=== PATIENT | male | born 1945 | race Two or more races ===

== ENCOUNTER 2021-03-01 18:35 | Emergency (ER) | payer SELFPAY ==
[~2021-03-01] VITALS: Ht 165.1 cm; Wt 88.5 kg
[2021-03-01 18:58] LABS: BASOPHILS # (AUTO) 0.1 K/uL (0.0-0.2); BASOPHILS % (AUTO) 0.7 % (0.0-2.0); EOSINOPHILS % (AUTO) 3.4 % (0.0-6.0); HEMATOCRIT 26 % (39-51); HEMOGLOBIN 7.8 g/dL (13.5-17.5); LYMPHOCYTES # (AUTO) 1.6 K/uL (0.8-4.8); LYMPHOCYTES % (AUTO) 21.9 % (20.0-44.0); MEAN CORPUSCULAR HGB CONC 30 g/dl (31.0-36.0); MEAN CORPUSCULAR VOLUME 63 fL (80-96); MONOCYTES # (AUTO) 0.6 K/uL (0.1-1.30); MONOCYTES % (AUTO) 8.8 % (2.0-12.0); NEUTROPHILS # (AUTO) 4.7 K/uL (1.8-8.9); NEUTROPHILS % (AUTO) 65.2 % (43.0-81.0); PLATELET COUNT (AUTO) 222 K/uL (150-450); RED BLOOD CELL COUNT(AUTO) 4.09 MIL/uL (4.5-6.0); WHITE BLOOD COUNT (AUTO) 7.2 K/uL (4.3-11.0)
[2021-03-01] MEDS ORDERED: NITROGLYCERIN PACKET 1 GM PACKET TD ONE (19:00)
[2021-03-01 19:06] LABS: CALCIUM, SERUM 8.5 mg/dL (8.5-10.1); CARBON DIOXIDE 26 mmol/L (21-32); CHLORIDE 105 mmol/L (98-107); CREATININE 0.9 mg/dL (0.6-1.3); GLUCOSE 232 mg/dL (74-106); POTASSIUM 4.3 mmol/L (3.5-5.1); SODIUM SERUM 141 mmol/L (136-145); UREA NITROGEN, BLOOD 19 mg/dL (7-18)
--- NOTE | 2021-03-01 19:11 | NUR ---
76 years old male presents to er by ambulance with cp past 2 days worse today denies nausea,vomiting, constipation report bloating, placed on computer education teacher continuous pulse ox EKG done given to Dr Romero no acute distress.
[2021-03-01] MEDS ORDERED: NITROGLYCERIN PACKET 1 GM PACKET ONE (19:15)
--- NOTE | 2021-03-01 19:23 | NUR ---
report endorsed to 7pm RN all questions answered.
--- NOTE | 2021-03-01 19:54 | NUR ---
SPOKE TO THE PT AND THE SON ON THE PHONE MARK ANTHONY INTERPRETOR REGARDING ADMISSION. ALSO SPOKE TO THE SON OVER THE PHONE. PT AND SON BOTH REFUSED TO STAY AT THE HOSPITAL AND GET ADMITTED. RISK VS BENEFITS WERE EXPLAINED TO THE PT AND SON IN [facility].
[2021-03-01 20:09] LABS: LYMPHOCYTES % (MANUAL) 20 % (16-48); NEUTROPHILS % (MANUAL) 68 (42-76)
[2021-03-01 20:10] LABS: EOSINOPHILS % (MANUAL) 4 % (0-4); MONOCYTES % (MANUAL) 8 % (0-11.0)
--- NOTE | 2021-03-01 20:54 | NUR ---
Patient does not wish to proceed with medical care recommended by Dr. Romero. Patient and the son given information related to possible complications, up to and including , which could occur as a result of leaving the hospital at this time. Patient verbalizes understanding of risks involved due to leaving against medical advice. Patient and the son signed AMA form.IV removed. Catheter intact and site benign. Pressure and 4x4 applied to site. No bleeding noted.
[2021-03-01 20:57] VITALS: BP 131/67
== END 2021-03-01 20:57 | disposition left against medical advice (07) ==
LOC: ER 18:41
DX: I24.9 Acute ischemic heart disease, unspecified (principal); I11.0 Hypertensive heart disease with heart failure; I50.9 Heart failure, unspecified; D64.9 Anemia, unspecified; E11.9 Type 2 diabetes mellitus without complications; Z88.8 Allergy status to other drugs, medicaments and biological substances; Z95.818 Presence of other cardiac implants and grafts
CPT/HCPCS: 36415; 71045-TC; 80048-TC; 83880; 84484-TC; 85025-TC

== ENCOUNTER 2022-06-27 17:47 | Inpatient (IN) | payer MEDICARE, OTHER ==
[~2022-06-27] VITALS: Ht 167.6 cm; Wt 87.5 kg
--- NOTE | 2022-06-27 17:53 | NUR ---
KAYE 89 FROM HOME FOR SOB AND O2 DESATURATION, ON CPAP AND ALBUTEROL TREATMENT. TO ER BED 5.
[2022-06-27] MEDS ORDERED: [UNRECOGNIZED DRUG - REMARK] (18:15)
[2022-06-27] MEDS ORDERED: DILTIAZEM HCL 25 MG IV IVP ONE (18:30)
[2022-06-27] MEDS ORDERED: ASPIRIN 81 MG TAB.CHEW PO ONE (18:30)
[2022-06-27] MEDS ORDERED: DILTIAZEM HCL IV 125 MG in IV D5W 100 ML IV ONE (18:30)
--- NOTE | 2022-06-27 18:40 | NUR ---
Pt placed on BIPAP on noted settings at arrival per MD Mckeon. Pt awake and responsive. Pt tolerating current settings. Pt arrived on continuous ALB tx. ABG scheduled 1 hr post BIPAP initial (@191).
[2022-06-27] MEDS ORDERED: ASPIRIN 81 MG TAB.CHEW ONE (18:43)
[2022-06-27] MEDS ORDERED: DILTIAZEM HCL 25 MG IV ONE (18:44)
--- NOTE | 2022-06-27 18:58 | NUR ---
BIPAP SETTINGS: IPAP-20, RATE-18, RISE-3, EPAP-8, O2-100
[2022-06-27] MEDS ORDERED: FUROSEMIDE 40 MG/4 ML VIAL IV ONE (19:00)
[2022-06-27 19:01] LABS: CALCIUM, SERUM 8.8 mg/dL (8.5-10.1); CARBON DIOXIDE 25 mmol/L (21-32); CHLORIDE 96 mmol/L (98-107); GLUCOSE 296 mg/dL (74-106); POTASSIUM 4.3 mmol/L (3.5-5.1); SODIUM SERUM 128 mmol/L (136-145); UREA NITROGEN, BLOOD 15 mg/dL (7-18)
[2022-06-27] MEDS ORDERED: FUROSEMIDE 40 MG/4 ML VIAL ONE (19:02)
--- NOTE | 2022-06-27 19:09 | NUR ---
PANEL ON-CALL PAGED
[2022-06-27 19:14] LABS: ALANINE AMINOTRANSFERASE 24 U/L (12-78); ALBUMIN 3.4 g/dL (3.4-5.0); ALKALINE PHOSPHATASE 40 U/L (46-116); ASPARTATE AMINOTRANSFERASE 38 U/L (15-37); BILIRUBIN,DIRECT 0.2 mg/dL (0.0-0.2); BILIRUBIN,TOTAL 0.6 mg/dL (0.2-1.0); TOTAL PROTEIN, SERUM 7.6 g/dL (6.4-8.2)
--- NOTE | 2022-06-27 19:16 | NUR ---
HR-107, BP-125/58; CARDIZEM DRIP INITIATED AT 5MG/HR.
--- NOTE | 2022-06-27 19:16 | NUR ---
RT AT BEDSIDE FOR ABG
[2022-06-27 19:30] LABS: ABG BASE EXCESS 0.3 mmol/L; ABG OXYGEN SATURATION 98.7 % (92.0-98.5); ABG PCO2 32.6 mmHg (35.0-45.0); ABG PH 7.471 (7.350-7.450); ABG PO2 425.3 mmHg (75.0-100.0); AaDO2 255.1 mmHg; COHb 0.3 % (0.5-1.5); MetHb 0.1 % (0.0-1.5); O2Hb 98.3 % (94.0-97.0); SITE, ABG Right Radial
--- NOTE | 2022-06-27 19:30 | NUR ---
RT FIO2 titrate to 30%
[2022-06-27 19:51] LABS: BASOPHILS % (AUTO) 0.2 % (0.0-2.0); EOSINOPHILS % (AUTO) 0.1 % (0.0-6.0); HEMATOCRIT 37 % (39-51); HEMOGLOBIN 12.1 g/dL (13.5-17.5); LYMPHOCYTES # (AUTO) 0.6 K/uL (0.8-4.8); LYMPHOCYTES % (AUTO) 6.8 % (20.0-44.0); MEAN CORPUSCULAR HGB CONC 33 g/dl (31.0-36.0); MEAN CORPUSCULAR VOLUME 79 fL (80-96); MONOCYTES # (AUTO) 0.6 K/uL (0.1-1.30); MONOCYTES % (AUTO) 7.6 % (2.0-12.0); NEUTROPHILS % (AUTO) 85.3 % (43.0-81.0); PLATELET COUNT (AUTO) 184 K/uL (150-450); WHITE BLOOD COUNT (AUTO) 8.2 K/uL (4.3-11.0)
--- NOTE | 2022-06-27 20:53 | NUR ---
SPOKE TO SON CHICHO. THEY WANT TO BRING THEIR DAD HOME AMA. EXPLAINED TO HIM THAT HIS DAD IS POSITIVE OF COVID AND HE IS ADMITTED FOR AFIB AND HAVING A CARDIZEM DRIP. SON IS WORRIED THAT WE ARE GIVING THEM A FALSE REPORT REPORT SINCE THIS HAPPEN TO HIS DAD LAST YEAR TOO BUT DAD WAS OK WHEN THEY BROUGHT HIM HOME. HE WANTS TO TALK TO DR FISHER ABOUT PLAN OF AMA. DR FISHER MADE AWARE AND EXPLAINED TO HIM THE RISK OF BRINGING THEIR DAD HOME. ESPECIALLY THAT PT'S CARDIAC ENZYMES ARE VERY HIGH. SON WILL TALK TO SISTER ABOUT THIS.
[2022-06-27] MEDS ORDERED: ALBUTEROL SULFATE 8 GM HFA.AER.AD IH PRN (21:00)
[2022-06-27] MEDS: ASPIRIN 81 MG TAB.CHEW PO SCH (21:00)
[2022-06-27] MEDS ORDERED: ONDANSETRON HCL/PF 4 MG/2 ML VIAL IVP PRN (21:00)
[2022-06-27] MEDS ORDERED: MAG HYDROX/AL HYDROX/SIMETH 30 ML UDC PO PRN (21:00)
[2022-06-27] MEDS ORDERED: DEXTROSE 50%-WATER 50 ML DISP.SYRIN IV PRN (21:00)
[2022-06-27] MEDS ORDERED: MORPHINE SULFATE INJ 2 MG/ML DISP.SYRIN IV PRN (21:00)
[2022-06-27] MEDS ORDERED: Z GUARD REMEDY 4 OZ OINT TP PRN (21:00)
[2022-06-27] MEDS ORDERED: ACETAMINOPHEN 325 MG TABLET PO PRN (21:00)
[2022-06-27] MEDS ORDERED: FUROSEMIDE 40 MG/4 ML VIAL IV SCH (21:00)
[2022-06-27] MEDS ORDERED: ZOLPIDEM TARTRATE 5 MG TABLET PO PRN (21:00)
[2022-06-27] MEDS ORDERED: MAGNESIUM HYDROXIDE 30 ML UDC PO PRN (21:00)
--- NOTE | 2022-06-27 21:07 | NUR ---
Robi crews in [facility] - 06/27/22 at 2108 by YARELI TRANSFERRED PATIENT TO [facility] VIA ACLS
--- NOTE | 2022-06-27 22:45 | NUR ---
Received patient from ED via ACLS protocol/fatmata transferred to bed and made comfortable. Dx: Respiratory Failure,Afib with RVR,Heart failure,Covid +.Patient AA/OX3 on O2 8L simple mask. No acute distress noted.Afib per monitor 90's with Cardizem gtt infusing at 5 mg/hr.Patient denies chest pain, sob or any discomfort.Moves all extremities.FC to gravity with clear yellow urine.Oriented to unit and plan of care explained to patient.Verbalized understanding.Safety precaution initiated.Call light at bedside.
--- NOTE | 2022-06-27 22:56 | NUR ---
TRANSFERRED PT TO ICU PER ACLS. PATIENT TOLERATING THE TRANSPORT
--- NOTE | 2022-06-27 22:57 | NUR ---
URINE SPECIMEN SENT TO LAB
--- NOTE | 2022-06-27 22:58 | NUR ---
IFC F16 INSERTED. IV CANNULA G20 INSERTED ON RIGHT FA.
[2022-06-27 23:00] VITALS: BP 143/72
[2022-06-27] MEDS ORDERED: ENOXAPARIN SODIUM 100 MG/ML DISP.SYRIN SQ SCH (23:00)
[2022-06-27 23:15] VITALS: BP 128/66
[2022-06-27] MEDS ORDERED: CEFTRIAXONE 1 G VIAL ONE (23:22)
[2022-06-27] MEDS: DEXAMETHASONE SOD PHOSPHATE 10 MG/ML VIAL IV SCH (23:27)
[2022-06-27] MEDS: CEFTRIAXONE 1 G in IV D5W 50 ML IV SCH (23:27)
[2022-06-27 23:30] VITALS: BP 124/69
[2022-06-27] MEDS ORDERED: IV NS 0.9% 250 ML IV PRN (23:30)
[2022-06-27] MEDS ORDERED: DILTIAZEM HCL IV 125 MG in IV NS 0.9% 100 ML IV PRN (23:30)
[2022-06-27] MEDS ORDERED: AZITHROMYCIN 500 MG VIAL ONE (23:42)
[2022-06-27] MEDS ORDERED: INSULIN REGULAR, HUMAN 100 UNIT/ML 3 ML VIAL ONE (23:42)
[2022-06-27 23:45] VITALS: BP 125/71
[2022-06-27 23:47] LABS: BILIRUBIN,URINE NEGATIVE (NEGATIVE); COLOR,URINE YELLOW (YELLOW); LEUKOCYTE ESTERASE ,URINE NEGATIVE (NEGATIVE); NITRITE, URINE NEGATIVE (NEGATIVE); PH,URINE 5.5 (5.0-8.0); PROTEIN,URINE 3+ mg/dl (NEGATIVE); UGLUCOSE 2+ mg/dL (NEGATIVE); UROBILINOGEN,URINE 0.2 EU/dL (0.2)
[2022-06-27] MEDS: AZITHROMYCIN 500 MG in IV D5W 250 ML IV SCH (23:55)
[2022-06-28] VITALS (22 sets, daily range): BP systolic 108–147; BP diastolic 47–93
[2022-06-28 00:09] LABS: BACTERIA,URINE Few /HPF (None Seen); SQUAMOUS EPITHELIAL CELL,UR Few /HPF (None Seen)
[2022-06-28] MEDS: INSULIN REGULAR, HUMAN 100 UNIT/ML 3 ML VIAL SQ PRN ×3 (00:17→12:28)
[2022-06-28] MEDS: BLOOD SUGAR DIAGNOSTIC 1 EACH STRIP IN SCH ×4 (00:17→17:18)
[2022-06-28] MEDS ORDERED: APIX2.5T PO (01:17)
[2022-06-28] MEDS ORDERED: CYAN-51 PO (01:17)
[2022-06-28] MEDS ORDERED: LOSA100T31 PO (01:17)
[2022-06-28] MEDS ORDERED: FENO160T PO (01:17)
[2022-06-28] MEDS ORDERED: OMEP20TA5 PO (01:17)
[2022-06-28] MEDS ORDERED: ASPI-84 PO (01:17)
[2022-06-28] MEDS ORDERED: CARV12.52 PO (01:17)
[2022-06-28] MEDS ORDERED: RANO500T3 PO (01:17)
[2022-06-28] MEDS ORDERED: INSU100V7 SQ (01:17)
[2022-06-28] MEDS ORDERED: METF-440 PO (01:17)
[2022-06-28] MEDS ORDERED: AMLO-213 PO (01:17)
[2022-06-28] MEDS ORDERED: ROSU40TA PO (01:17)
[2022-06-28] MEDS ORDERED: ASPI-1169 PO (01:17)
--- NOTE | 2022-06-28 02:00 | NUR ---
Patient resting in no acute distress.VSS remains stable.Denies any discomfort.Cardizem gtt infusing AFIB controlled.Tolerating O2 Simple mask.Turned and reposition self in bed.
[2022-06-28 04:31] LABS: BASOPHILS % (AUTO) 0.1 % (0.0-2.0); HEMATOCRIT 33 % (39-51); HEMOGLOBIN 11.1 g/dL (13.5-17.5); LYMPHOCYTES # (AUTO) 0.3 K/uL (0.8-4.8); LYMPHOCYTES % (AUTO) 4.7 % (20.0-44.0); MEAN CORPUSCULAR HGB CONC 34 g/dl (31.0-36.0); MEAN CORPUSCULAR VOLUME 77 fL (80-96); MONOCYTES # (AUTO) 0.3 K/uL (0.1-1.30); NEUTROPHILS # (AUTO) 5.8 K/uL (1.8-8.9); NEUTROPHILS % (AUTO) 90.2 % (43.0-81.0); PLATELET COUNT (AUTO) 167 K/uL (150-450); RED BLOOD CELL COUNT(AUTO) 4.27 MIL/uL (4.5-6.0); WHITE BLOOD COUNT (AUTO) 6.4 K/uL (4.3-11.0)
[2022-06-28 04:33] LABS: CALCIUM, SERUM 8.3 mg/dL (8.5-10.1); CREATININE 1.2 mg/dL (0.6-1.3); POTASSIUM 4.4 mmol/L (3.5-5.1)
[2022-06-28 04:46] LABS: MAGNESIUM 1.6 mg/dL (1.8-2.4); PHOSPHORUS 3.7 mg/dL (2.5-4.9)
[2022-06-28 04:47] LABS: D-DIMER 0.53 mg/L(FEU (0.17-0.50)
[2022-06-28 04:52] LABS: THYROID STIMULATING HORMONE 0.798 uIU/mL (0.358-3.74)
[2022-06-28 04:53] LABS: C-REACTIVE PROTEIN 20.1 mg/dL (0.0-0.9)
[2022-06-28 06:04] LABS: ABG BASE EXCESS -1.7 mmol/L; ABG OXYGEN SATURATION 94.8 % (92.0-98.5); ABG PCO2 32.2 mmHg (35.0-45.0); ABG PH 7.446 (7.350-7.450); ABG PO2 79.1 mmHg (75.0-100.0); AaDO2 255.6 mmHg; COHb 0.8 % (0.5-1.5); MetHb 0.3 % (0.0-1.5); O2Hb 93.8 % (94.0-97.0); SITE, ABG Left Radial
--- NOTE | 2022-06-28 06:30 | NUR ---
Patient awake in no acute distress.VSS.AM care done.Verbalized comfort.ABG'S done by RT results wnl.Cardizem gtt infusing at 5 mg/HR site intact.Needs wound consult for right heel wound.Will endorse to day shift for MEGAN.
--- NOTE | 2022-06-28 07:22 | NUR ---
WOUND CARE CONSULT: REVIEWED CHART, NURSING DOCUMENTATION AND PHOTO WHICH INDICATES LEFT HEEL WOUND, PRESENT ON ADMISSION DR LIVINGSTON TO BE CALLED THIS AM FOR DPM CONSULT. MD IN AGREEMENT WITH PLAN OF CARE. DISCUSSED SKIN PROTECTION WITH NURSING STAFF.
--- NOTE | 2022-06-28 07:58 | NUR ---
NOTIFIED REGARDING CARDIZEM DRIP STILL INFUSING AT 5MG/HR AND HR IN 70s, PER MD "I WILL REVIEW."
[2022-06-28] MEDS: FUROSEMIDE 40 MG/4 ML VIAL IV SCH ×2 (08:25→16:48)
[2022-06-28] MEDS: ASPIRIN 81 MG TAB.CHEW PO SCH ×2 (08:25→09:00)
[2022-06-28] MEDS: DEXAMETHASONE SOD PHOSPHATE 10 MG/ML VIAL IV SCH (08:25)
[2022-06-28] MEDS: ENOXAPARIN SODIUM 80 MG/0.8 ML DISP.SYRIN SQ SCH ×2 (08:29→20:38)
[2022-06-28] MEDS ORDERED: LOSARTAN POTASSIUM 50 MG TABLET PO SCH (09:00)
[2022-06-28] MEDS ORDERED: Medication Not On Formulary EA (Omeprazole 20 MG) PO SCH (09:00)
[2022-06-28] MEDS ORDERED: PANTOPRAZOLE 40 MG VIAL IV SCH (09:00)
[2022-06-28] MEDS ORDERED: DILTIAZEM HCL CD 240 MG PO SCH (09:00)
[2022-06-28] MEDS ORDERED: APIXABAN 5 MG TABLET PO SCH (09:00)
[2022-06-28] MEDS: CARVEDILOL 12.5 MG TABLET PO SCH ×2 (10:18→17:00)
[2022-06-28] MEDS: RANOLAZINE 500 MG TAB.ER.12H PO SCH ×2 (10:18→16:46)
[2022-06-28] MEDS: ATORVASTATIN 40 MG TABLET PO SCH (10:19)
[2022-06-28] MEDS: METFORMIN 500 MG TABLET PO SCH ×2 (10:19→16:46)
[2022-06-28] MEDS ORDERED: MAGNESIUM OXIDE 400 MG TABLET PO ONE (11:00)
--- NOTE | 2022-06-28 11:05 | NUR ---
TRANSFERRED PT. TO TELE UNIT RM 101-ISOLATION RM PER ORDER/PROTOCOL; NO SSx OF ACUTE DISTRESS NOTED; BEDSIDE REPORT GIVEN TO NUBIA FOR CONTINUITY OF CARE AND REGARDING PATIENT BELONGINGS ENDORSEMENT. ALL PATIENT'S NEEDS ATTENDED.
--- NOTE | 2022-06-28 17:09 | NUR ---
RN NOTES: BLOOD SUGAR 407 LEFT A MESSAGE TO DR FARRAR AND PLACED AN ORDER FOR RANDOM GLUCOSE
[2022-06-28] MEDS ORDERED: DEXTROSE 50%-WATER 50 ML DISP.SYRIN IV PRN (17:30)
[2022-06-28] MEDS: BLOOD SUGAR DIAGNOSTIC 1 EACH STRIP VI SCH ×2 (17:31→22:16)
[2022-06-28] MEDS ORDERED: INSULIN REGULAR, HUMAN 100 UNIT/ML 3 ML VIAL SQ ONE (18:00)
[2022-06-28] MEDS ORDERED: REMDESIVIR (CHARGED) 200 MG, *LOADING DOSE 1 EA in IV NS 0.9% 210 ML IV ONE (20:00)
[2022-06-28] MEDS: CEFTRIAXONE 1 G in IV D5W 50 ML IV SCH (20:31)
--- NOTE | 2022-06-28 21:05 | NUR ---
RN NOTES: SON AND DAUGHTER CALLED MADE AWARE OF THE NEW MEDICINE REMDISIVIR FOR COVID THEY REFUSED TO GIVE MEDICINE TO THE PATIENT , LEFT MESSAGE TO DR LEAL
[2022-06-28] MEDS: AZITHROMYCIN 500 MG in IV D5W 250 ML IV SCH (21:36)
[2022-06-28] MEDS: *INSULIN REGULAR(HUMULIN R)HUM 100 UNIT/ML VIAL SQ PRN (22:18)
--- NOTE | 2022-06-28 23:42 | NUR ---
RN NOTES: PT IN BED AWAKE, RESPIRATION IS EVEN AND UNLABORED, OXYGEN VIA NASAL CANULA 5L/MIN.ALL DUE MEDS ARE GIVEN ORDERED, IV ON BOTH FOREARM PATENT AND FLUSHING WELL. KEPT DRY , CLEAN AND COMFORTABLE, CALL LIGHT WITHIN REACH, CONTINUE ISOLATION FOR COVID 19.ENDORSED TO YVON HUNTER FOR MEGAN
--- NOTE | 2022-06-28 23:45 | NUR ---
RN NOTES: RECEIVED REPORT FROM BRISA HUNTER.
[2022-06-29] VITALS: BP 127/52
--- NOTE | 2022-06-29 | NUR ---
RN NOTES: DAUGHTER CALLED, GAVE HER ALL THE UPDATES.
[2022-06-29 04:00] VITALS: BP 92/53
[2022-06-29 05:53] LABS: BASOPHILS % (AUTO) 0.1 % (0.0-2.0); HEMATOCRIT 32 % (39-51); HEMOGLOBIN 10.5 g/dL (13.5-17.5); LYMPHOCYTES # (AUTO) 0.3 K/uL (0.8-4.8); LYMPHOCYTES % (AUTO) 4.8 % (20.0-44.0); MEAN CORPUSCULAR HGB CONC 33 g/dl (31.0-36.0); MEAN CORPUSCULAR VOLUME 78 fL (80-96); MONOCYTES # (AUTO) 0.5 K/uL (0.1-1.30); MONOCYTES % (AUTO) 7.3 % (2.0-12.0); NEUTROPHILS # (AUTO) 5.6 K/uL (1.8-8.9); NEUTROPHILS % (AUTO) 87.8 % (43.0-81.0); PLATELET COUNT (AUTO) 174 K/uL (150-450); RED BLOOD CELL COUNT(AUTO) 4.11 MIL/uL (4.5-6.0); WHITE BLOOD COUNT (AUTO) 6.4 K/uL (4.3-11.0)
[2022-06-29 06:29] LABS: ALANINE AMINOTRANSFERASE 21 U/L (12-78); ALBUMIN 2.9 g/dL (3.4-5.0); ALKALINE PHOSPHATASE 31 U/L (46-116); ASPARTATE AMINOTRANSFERASE 30 U/L (15-37); BILIRUBIN,TOTAL 0.3 mg/dL (0.2-1.0); CALCIUM, SERUM 8.5 mg/dL (8.5-10.1); CARBON DIOXIDE 27 mmol/L (21-32); CHLORIDE 99 mmol/L (98-107); CREATININE 1.6 mg/dL (0.6-1.3); GLUCOSE 241 mg/dL (74-106); MAGNESIUM 1.8 mg/dL (1.8-2.4); PHOSPHORUS 3.9 mg/dL (2.5-4.9); POTASSIUM 4.7 mmol/L (3.5-5.1); SODIUM SERUM 134 mmol/L (136-145); TOTAL PROTEIN, SERUM 6.7 g/dL (6.4-8.2); UREA NITROGEN, BLOOD 50 mg/dL (7-18)
--- NOTE | 2022-06-29 06:32 | NUR ---
RN CLOSING NOTES: PT IN BED, SLEEPING BUT EASILY AROUSABLE, AWAKE,ALERT/ORIENTED X4 AND VERBALLY RESPONSIVE. BREATHING EVEN AND UNLABORED. O2 AT 5L/MIN VIA N/C AND PT TOLERATED WELL. O2 SAT 97%. IV ACCESS ON LFA#18G INTACT AND PATENT. NO S/S OF INFILTRATIONS. NO C/O SHIV N OR DISCOMFORT. NO ACUTE DISTRESS. ALL DUE MEDS GIVEN ORDERED. ALL SAFETY MEASURES IN PLACE. ISOLATION PRECAUTION ON. BED IN LOWEST POSITION AND LOCKED. PLACE CALL LIGHT WITH IN REACH. WILL CONTINUE TO MONITOR
--- NOTE | 2022-06-29 07:00 | NUR ---
RN NOTE RECEIVED PATIENT IN BED ALERT ORIENTED X4 VERBALLY RESPONSIVE ON 5L OXYGEN VIA NASAL CANNUALO2:98% IV SITE IS ON LEFT FOREARM INTACT PATENT BRICE CATH IN PLACE URINE DRAINING YELLOW/CLEAR BY GRAVITY,SAFETY MEASURE IMPLEMENT BED IN LOW POSITION AND LOCKED,CALL LIGHT WITHIN REACH CONTINUE TO MONITOR.
[2022-06-29] MEDS: BLOOD SUGAR DIAGNOSTIC 1 EACH STRIP VI SCH ×4 (07:49→21:34)
[2022-06-29 08:00] VITALS: BP 130/70
[2022-06-29] MEDS ORDERED: VANCOMYCIN 1.25 GM in IV D5W 250 ML IV ONE (08:00)
[2022-06-29] MEDS: FUROSEMIDE 40 MG/4 ML VIAL IV SCH ×2 (09:00→17:00)
[2022-06-29] MEDS: METFORMIN 500 MG TABLET PO SCH ×2 (09:00→17:19)
[2022-06-29] MEDS: FENOFIBRATE NANOCRYS (145 MG) 145 MG TABLET PO SCH ×2 (09:00→10:15)
[2022-06-29] MEDS: RANOLAZINE 500 MG TAB.ER.12H PO SCH ×2 (09:01→17:19)
[2022-06-29] MEDS: PANTOPRAZOLE 40 MG TABLET.DR PO SCH (09:01)
[2022-06-29] MEDS: CARVEDILOL 12.5 MG TABLET PO SCH ×2 (09:01→21:24)
[2022-06-29] MEDS: ATORVASTATIN 40 MG TABLET PO SCH (09:02)
[2022-06-29] MEDS: APIXABAN 5 MG TABLET PO SCH ×2 (09:02→17:20)
[2022-06-29] MEDS: ASPIRIN 81 MG TAB.CHEW PO SCH (09:02)
[2022-06-29] MEDS: DEXAMETHASONE SOD PHOSPHATE 10 MG/ML VIAL IV SCH (09:03)
[2022-06-29] MEDS: *INSULIN REGULAR(HUMULIN R)HUM 100 UNIT/ML VIAL SQ PRN ×3 (09:50→21:36)
[2022-06-29] MEDS: FUROSEMIDE 100 MG/10 ML VIAL IV SCH ×3 (09:59→17:21)
[2022-06-29 12:00] VITALS: BP 115/60
[2022-06-29] MEDS: DIGOXIN INJ 0.5 MG/2 ML AMPUL IV SCH ×2 (12:00→17:27)
[2022-06-29 16:00] VITALS: BP 123/64
[2022-06-29] MEDS: INSULIN REGULAR, HUMAN 100 UNIT/ML 3 ML VIAL SQ PRN (17:30)
--- NOTE | 2022-06-29 19:00 | NUR ---
RN NOTE PT IN BED, AAO X 4, IN NO ACUTE DISTRESS, SATURATION AT 100% ON 5L VIA NC, AFIB WITH PVC'S ON THE MONITOR, HR IS 75. IV LINE AT LFA 18G, AND RFA 20G PATENT AND FLUSHING WELL, SALINE LOCKED. BRICE CATHETER DRAINING TO A CLEAR, YELLOW OUTPUT. SAFETY MEASURES IN PLACE, BED IS LOCKED AND AT LOWEST POSITION, HOB ELEVATED, CALL LIGHT WITHIN REACH OF PATIENT. WILL CONT TO MONITOR AND REASSESS.
--- NOTE | 2022-06-29 19:03 | NUR ---
RN NOTE PATIENT REMAINS ALERT ORIENTED X4 VERBALLY RESPONSIVE ON 5L OXYGEN VIA NASAL CANNULA O2:97% NO SOB NOT ACUTE DISTRESS NOTED,BRICE CATH IN PLACE ALL DUE MEDS GIVEN MD ORDERED KEPT CLEAN AND DRY ALL THE TIME,KEPT HEAD OF THE BED ELEVATED ALL THE TIME,ALL NEEDS MET ENDORSE NEXT COMING SHIFT FOR CONTINUATION OF CARE.
[2022-06-29 20:00] VITALS: BP 113/50
[2022-06-29] MEDS ORDERED: REMDESIVIR (CHARGED) 100 MG in IV NS 0.9% 100 ML IV SCH (20:00)
[2022-06-29] MEDS ORDERED: CEFTRIAXONE 2 G in IV D5W 50 ML IV SCH (21:00)
[2022-06-30] VITALS: BP 115/48
[2022-06-30] MEDS: DIGOXIN INJ 0.5 MG/2 ML AMPUL IV SCH
[2022-06-30 04:00] VITALS: BP 127/63
[2022-06-30 06:25] LABS: HEMATOCRIT 33 % (39-51); HEMOGLOBIN 10.9 g/dL (13.5-17.5); LYMPHOCYTES # (AUTO) 0.2 K/uL (0.8-4.8); LYMPHOCYTES % (AUTO) 3.1 % (20.0-44.0); MEAN CORPUSCULAR HGB CONC 33 g/dl (31.0-36.0); MEAN CORPUSCULAR VOLUME 78 fL (80-96); MONOCYTES # (AUTO) 0.4 K/uL (0.1-1.30); MONOCYTES % (AUTO) 5.6 % (2.0-12.0); NEUTROPHILS # (AUTO) 7.2 K/uL (1.8-8.9); NEUTROPHILS % (AUTO) 91.3 % (43.0-81.0); PLATELET COUNT (AUTO) 199 K/uL (150-450); RED BLOOD CELL COUNT(AUTO) 4.23 MIL/uL (4.5-6.0); WHITE BLOOD COUNT (AUTO) 7.8 K/uL (4.3-11.0)
[2022-06-30 07:13] LABS: ALANINE AMINOTRANSFERASE 25 U/L (12-78); ALBUMIN 2.9 g/dL (3.4-5.0); ALKALINE PHOSPHATASE 33 U/L (46-116); ASPARTATE AMINOTRANSFERASE 26 U/L (15-37); BILIRUBIN,TOTAL 0.4 mg/dL (0.2-1.0); CALCIUM, SERUM 8.5 mg/dL (8.5-10.1); CARBON DIOXIDE 30 mmol/L (21-32); CHLORIDE 94 mmol/L (98-107); CREATININE 1.5 mg/dL (0.6-1.3); GLUCOSE 286 mg/dL (74-106); MAGNESIUM 1.9 mg/dL (1.8-2.4); POTASSIUM 3.9 mmol/L (3.5-5.1); SODIUM SERUM 133 mmol/L (136-145); UREA NITROGEN, BLOOD 62 mg/dL (7-18)
[2022-06-30 08:00] VITALS: BP 142/78
[2022-06-30] MEDS ORDERED: VANCOMYCIN 1 GM in IV D5W 250 ML IV SCH (08:00)
[2022-06-30] MEDS: BLOOD SUGAR DIAGNOSTIC 1 EACH STRIP VI SCH ×3 (08:10→17:02)
--- NOTE | 2022-06-30 08:30 | NUR ---
RN NOTE I HAD A CALL FROM LAB REGARDING PATIENT'S TROPONIN LEVEL 1834 COMPARE TO 06/27 IS TRENDING DOWN.
--- NOTE | 2022-06-30 08:45 | NUR ---
RN NOTE PATIENT'S BLOOD SUGAR TAKEN AT 0800 WAS 315 BUT THE ACCU CHECK MACHINE IS NOT TRANSFERRING THE DATA. CHARGE NURSE CASSANDRA INFORMED AND SHE SAID TO MAKE A NOTE.
[2022-06-30] MEDS: METFORMIN 500 MG TABLET PO SCH ×2 (09:21→16:59)
[2022-06-30] MEDS: CARVEDILOL 12.5 MG TABLET PO SCH (09:22)
[2022-06-30] MEDS: RANOLAZINE 500 MG TAB.ER.12H PO SCH ×2 (09:22→17:01)
[2022-06-30] MEDS: ATORVASTATIN 40 MG TABLET PO SCH (09:22)
[2022-06-30] MEDS: DEXAMETHASONE SOD PHOSPHATE 10 MG/ML VIAL IV SCH (09:22)
[2022-06-30] MEDS: ASPIRIN 81 MG TAB.CHEW PO SCH (09:22)
[2022-06-30] MEDS: PANTOPRAZOLE 40 MG TABLET.DR PO SCH (09:22)
[2022-06-30] MEDS: FENOFIBRATE NANOCRYS (145 MG) 145 MG TABLET PO SCH (09:30)
[2022-06-30] MEDS: APIXABAN 5 MG TABLET PO SCH ×2 (09:39→17:01)
[2022-06-30] MEDS: INSULIN REGULAR, HUMAN 100 UNIT/ML 3 ML VIAL SQ PRN ×2 (09:42→17:03)
[2022-06-30 12:00] VITALS: BP 131/66
[2022-06-30] MEDS ORDERED: NA PHOS,M-B/NA PHOS,DI-BA 1 EA ENEMA RC ONE (12:00)
[2022-06-30] MEDS ORDERED: MENTHOL/CETYLPYRD (CEPACOL) 1 LOZ LOZENGE PO PRN (13:00)
[2022-06-30] MEDS ORDERED: METH4TAB17 PO (14:07)
[2022-06-30 16:00] VITALS: BP 121/64
--- NOTE | 2022-06-30 18:50 | NUR ---
RN CLOSING NOTE (PATIENT DISCHARGED) PATIENT DISCHARGED HOME WITH ASUNCION. ON ROOM AIR O2 SAT 94-96%. BP: 139/82 HR:88 RR:20 T:97.8 PATIENT STABLE. OXYGEN ALREADY DELIVERED TO PATIENT'S HOUSE AT 1700 PATIENT LEFT THE HOSPITAL AT 1845. PATIENT'S DAUGHTER CALLED IN THE MORNING IF HER DAD CAN BE DISCHARGED DR. LEAL CLEARED THE PATIENT. DR. CRAIN ORDERED THE DISCHARGE. DR LEAL SAID IF PATIENT CAN BE ON O2SAT ABOVE 91% ON ROOM AIR HE CAN GO HOME. PATIENT O2 SAT ON ROOM AIR WAS 94%. PATIENT SIGNED THE BELONGING LIST ALL HIS BELONGINGS GIVEN TO THE PATIENT. BRICE CATHETER REMOVED, PATIENT'S IV SITE REMOVED. PATIENT STABLE UPON DISCHARGE.
== END 2022-06-30 20:01 | disposition home health service (06) | DRG 177 ==
LOC: ER 17:49 → ICU 21:11 → TELE1 06-28 11:02
PROVIDERS: ADMIT Nurse Practitioner Acute Care; ATTEND Internal Medicine
PROC: 5A09357 Assistance with Respiratory Ventilation, Less than 24 Consecutive Hours, Continuous Positive Airway Pressure (ICD-10-PCS; principal; 2022-06-27)
DX: U07.1 COVID-19 (principal); I21.A1 Myocardial infarction type 2; J12.82 Pneumonia due to coronavirus disease 2019; J96.01 Acute respiratory failure with hypoxia; I50.23 Acute on chronic systolic (congestive) heart failure; N17.0 Acute kidney failure with tubular necrosis; L97.429 Non-pressure chronic ulcer of left heel and midfoot with unspecified severity; E87.1 Hypo-osmolality and hyponatremia; I48.91 Unspecified atrial fibrillation; I25.10 Atherosclerotic heart disease of native coronary artery without angina pectoris; Z95.1 Presence of aortocoronary bypass graft; Z86.79 Personal history of other diseases of the circulatory system; E11.65 Type 2 diabetes mellitus with hyperglycemia; Z88.8 Allergy status to other drugs, medicaments and biological substances; Z79.82 Long term (current) use of aspirin; Z79.899 Other long term (current) drug therapy; E11.621 Type 2 diabetes mellitus with foot ulcer; L97.509 Non-pressure chronic ulcer of other part of unspecified foot with unspecified severity; Z28.310 Unvaccinated for COVID-19; I25.2 Old myocardial infarction; Z79.01 Long term (current) use of anticoagulants; D50.9 Iron deficiency anemia, unspecified; I11.0 Hypertensive heart disease with heart failure; D63.8 Anemia in other chronic diseases classified elsewhere; E66.9 Obesity, unspecified; Z68.32 Body mass index [BMI] 32.0-32.9, adult; G47.33 Obstructive sleep apnea (adult) (pediatric); I27.21 Secondary pulmonary arterial hypertension; I70.0 Atherosclerosis of aorta; Z87.891 Personal history of nicotine dependence
CPT/HCPCS: 36415; 36600; 71045-TC; 71250-TC; 80048-TC; 80053-TC; 80061-TC; 80076-TC; 81001; 82550-TC; 82553; 82728-TC; 82803-TC; 82945-TC; 82962-TC; 83540-TC; 83605-TC; 83615-TC; 83735-TC; 83880; 84100-TC; 84443-TC; 84484-TC; 85025-TC; 85378-TC; 85610-TC; 85730-TC; 86140-TC; 86803; 87040-TC; 87081-TC; 87086-TC; 87806; 93307-TC; 94799-TC; C9113; C9803; G0378; J0456; J0696; J1100; J1160; J1650; J1815; J1940; J3370; J3490; J7050; J7060

== ENCOUNTER 2022-07-04 18:48 | Inpatient (IN) | payer MEDICARE, OTHER ==
[~2022-07-04] VITALS: Ht 177.8 cm; Wt 84.4 kg
[~2022-07-04 18:48] MED LIST: AMLO-213 PO; APIX2.5T PO; ASPI-1169 PO; ASPI-84 PO; CARV12.52 PO; CYAN-51 PO; FENO160T PO; INSU100V7 SQ; LOSA100T31 PO; METF-440 PO; METH4TAB17 PO; OMEP20TA5 PO; RANO500T3 PO; ROSU40TA PO; [UNRECOGNIZED DRUG - REMARK]
--- NOTE | 2022-07-04 18:55 | NUR ---
TO ER BED 8. [id number] FROM HOME FOR WORSENING SOB/ O2 DESATURATION X TODAY PER EMS HE TESTED POSITIVE FOR COVID ON 06/26. PT ATTACHED TO MONITOR, SATTING AT 83% ON NONREBREATHER, EMS STATED THAT HIS BLOOD PRESSURE WAS LOW 500CC ON NS GIVEN GUARD CAPTAIN, BLOOD PRESSURE WITHIN NORMAL RANGE. PT IS A&OX4.
[2022-07-04] MEDS ORDERED: ENOXAPARIN SODIUM 60 MG/0.6 ML DISP.SYRIN SQ ONE ×2 (19:00→19:09)
[2022-07-04] MEDS ORDERED: methylPREDNISolone SOD SUCC 125 MG/2ML VIAL IV ONE (19:00)
[2022-07-04] MEDS ORDERED: CEFTRIAXONE 1GM BAG (ER ONLY) 1 GM/50 ML PIGGYBACK IV ONE (19:00)
[2022-07-04] MEDS ORDERED: methylPREDNISolone SOD SUCC 125 MG/2ML VIAL ONE (19:09)
[2022-07-04] MEDS ORDERED: CEFTRIAXONE 1GM BAG (ER ONLY) 50 ML IV ONE (19:09)
--- NOTE | 2022-07-04 19:10 | NUR ---
YARN CONDITIONER LAC #18G S/L PATENT AND INTACT.
--- NOTE | 2022-07-04 19:11 | NUR ---
PT DAUGHTER STATED SHE GAVE 50 UNITS OF LANTUS 1 HOUR PRIOR TO ARRIVAL
--- NOTE | 2022-07-04 19:15 | NUR ---
PT ON HIFLOW O2 30LPM FIO2 80%; SATTING AT 93% WITH SOB. MD ORDER FOR RT TO DRAW ABG 15 MINUTES AFTER HIFLOW; RT AWARE.
--- NOTE | 2022-07-04 19:15 | NUR ---
EMT AT PT'S BEDSIDE FOR EKG
--- NOTE | 2022-07-04 19:20 | NUR ---
rt called to pt bedside by er staff. pt placed on high flow nasal canula per er md verbal order. pt placed on 30l 80%. Addendum: 07/04/22 at 2032 by FITO CHUNG RT Amended: Links added.
--- NOTE | 2022-07-04 19:25 | NUR ---
COVID ANTIGEN AND INFLUENZA SWAB COLLECTED AND SENT TO LAB
--- NOTE | 2022-07-04 19:27 | NUR ---
COMMUNITY BOARD MEMBER AT PT'S BEDSIDE
--- NOTE | 2022-07-04 20:00 | NUR ---
RT AT PT'S BEDSIDE FOR ABG
--- NOTE | 2022-07-04 20:00 | NUR ---
abg preformed after 30 min on high flow nasal canula per er md verbal order. fio2 increased to 100% post abg results. abg results reported to er staff Addendum: 07/04/22 at 2032 by FITO CHUNG RT Amended: Links added.
[2022-07-04 20:03] LABS: ABG BASE EXCESS 1.3 mmol/L; ABG PCO2 30.9 mmHg (35.0-45.0); ABG PH 7.507 (7.350-7.450); ABG PO2 52.2 mmHg (75.0-100.0); COHb 0.1 % (0.5-1.5); O2Hb 88.1 % (94.0-97.0); SITE, ABG Right Radial; VENT MODE, BG HFNC 30L 80%
--- NOTE | 2022-07-04 20:10 | NUR ---
WOMEN'S STUDIES PROFESSOR AT PT'S BEDSIDE
--- NOTE | 2022-07-04 20:10 | NUR ---
INFLUENZA SWAB COLLECTED AND SENT TO LAB
[2022-07-04 20:16] LABS: CREATINE KINASE, TOTAL 27 U/L (39-308)
[2022-07-04 20:24] LABS: ALANINE AMINOTRANSFERASE 36 U/L (12-78); ALBUMIN 2.5 g/dL (3.4-5.0); ALKALINE PHOSPHATASE 58 U/L (46-116); ASPARTATE AMINOTRANSFERASE 47 U/L (15-37); BILIRUBIN,TOTAL 0.6 mg/dL (0.2-1.0); CALCIUM, SERUM 8.5 mg/dL (8.5-10.1); CARBON DIOXIDE 29 mmol/L (21-32); CHLORIDE 97 mmol/L (98-107); CREATININE 1.5 mg/dL (0.6-1.3); GLUCOSE 318 mg/dL (74-106); POTASSIUM 4.7 mmol/L (3.5-5.1); SODIUM SERUM 131 mmol/L (136-145); UREA NITROGEN, BLOOD 41 mg/dL (7-18)
[2022-07-04 20:49] LABS: BASOPHILS % (AUTO) 0.1 % (0.0-2.0); EOSINOPHILS % (AUTO) 0.4 % (0.0-6.0); HEMATOCRIT 32 % (39-51); HEMOGLOBIN 10.6 g/dL (13.5-17.5); LYMPHOCYTES # (AUTO) 0.2 K/uL (0.8-4.8); LYMPHOCYTES % (AUTO) 2.5 % (20.0-44.0); MEAN CORPUSCULAR HGB CONC 33 g/dl (31.0-36.0); MEAN CORPUSCULAR VOLUME 78 fL (80-96); MONOCYTES # (AUTO) 0.5 K/uL (0.1-1.30); NEUTROPHILS # (AUTO) 7.5 K/uL (1.8-8.9); PLATELET COUNT (AUTO) 285 K/uL (150-450); RED BLOOD CELL COUNT(AUTO) 4.11 MIL/uL (4.5-6.0); WHITE BLOOD COUNT (AUTO) 8.3 K/uL (4.3-11.0)
--- NOTE | 2022-07-04 20:56 | NUR ---
UPDATED MILY (DAUGHTER) [phone] PER MILY PT COVID POSITIVE 14 DAYS AGO; DOESNT WANT PT TO KNOW PT IS POSITIVE.
[2022-07-04 21:05] LABS: D-DIMER 0.91 mg/L(FEU (0.17-0.50)
[2022-07-04 21:17] LABS: C-REACTIVE PROTEIN 26.1 mg/dL (0.0-0.9)
--- NOTE | 2022-07-04 21:40 | NUR ---
RECEIVED REPORT FROM CRIS POOL. PT IS COVID +
--- NOTE | 2022-07-04 21:50 | NUR ---
RECEIVED CRITICAL RESULT FROM LAB CORINE. LINDSEY 138. AWARE
--- NOTE | 2022-07-04 21:54 | NUR ---
Robi crews in [facility] - 07/04/22 at 2229 by TREE [id number]
[2022-07-04] MEDS ORDERED: ACETAMINOPHEN 650 MG/SUPP.RECT RC PRN (23:00)
[2022-07-04] MEDS ORDERED: ONDANSETRON HCL/PF 4 MG/2 ML VIAL IVP PRN (23:00)
[2022-07-04] MEDS ORDERED: ALBUTEROL SULFATE 8 GM HFA.AER.AD IH PRN (23:00)
[2022-07-04] MEDS ORDERED: ACETAMINOPHEN 325 MG TABLET PO PRN (23:00)
--- NOTE | 2022-07-04 23:10 | NUR ---
IV ESTABLISHED RFA #18G S/L BLOOD COLLECTED AND SENT TO LAB
--- NOTE | 2022-07-04 23:15 | NUR ---
RN NOTES RECEIVED REPORT FROM ER NURSE KERMIT
--- NOTE | 2022-07-04 23:17 | NUR ---
REPORT GIVEN TO BELEN FACTORY LABORER FOR MEGAN
--- NOTE | 2022-07-04 23:26 | NUR ---
UPDATED MILY (DAUGHTER) [phone] REGARDING ADMISSION
[2022-07-04] MEDS ORDERED: DEXTROSE 50%-WATER 50 ML DISP.SYRIN IV PRN (23:30)
[2022-07-04] MEDS ORDERED: INSULIN REGULAR, HUMAN 100 UNIT/ML 3 ML VIAL SQ PRN (23:30)
[2022-07-04] MEDS ORDERED: *INSULIN REGULAR(HUMULIN R)HUM 100 UNIT/ML VIAL SQ PRN (23:30)
--- NOTE | 2022-07-04 23:36 | NUR ---
PT TRANSFERRED TO ICU 260 VIA ACLS PROTOCOL WITH RT. ON HIFLOW 30LPM FIO2 100%. FOR TRANSPORT ON O2 NRB 15LPM SATTING AT 93%. PT TOLERATED TRANSFER WELL. ALL BELONGINGS WITH PT. IPHONE AND MACHINERY MOVER AT PT'S BEDSIDE.
[2022-07-04 23:37] VITALS: BP 128/73
--- NOTE | 2022-07-04 23:40 | NUR ---
FIREMAN HELPER NOTES ADMITTED A 77 YEAR OLD MALE PATIENT FOR ER VIA [facility] WITH DX ON ACUTE HYPOXEMIC RESPIRATORY FAILURE, SECONDARY DX COVID PNA, WITH HX OF AFIB, CAD, HTN, ND, CHF, DM, ANEMIA. A/O X 3 ON HIGH FLOW NASAL CANULA @ 30 LPM, FIO2- 100@ SATTING AT 89-90%, NOTED WITH LABORED BREATHING. AFEBRILE. NOTED WITH LAC # 10 AND RIGHT FOREARM #18 PERIPHERAL LINE, INTACT PATENT, FLUSHED WITH NS. PATIENT CONNECTED TO MACHINE CLOTH EXAMINER. V/S TAKEN AND RECORDED. BODY ASSESSMENT DONE, NOTED WITH LEFT HEEL PRESSURE ULCER SIZE 1.5CM X 1.5CM X 0.3CM, NO S/S OF INFECTION NOTED, NO BLEEDING, DENIES PAIN, TOOK PICTURE AND PLACED IT IN PATIENT CHART. ALL SAFETY MEASURE PROVIDED. BED IN LOWEST POSITION, LOCKED, BED ALARM ARMED. CALL LIGHT WITH IN REACH. CONTINUE TO MONITOR
[2022-07-05] VITALS (44 sets, daily range): BP systolic 108–145; BP diastolic 50–91
--- NOTE | 2022-07-05 00:10 | NUR ---
RT NOTE PT PLACED ON 100% NONREBREATHER MASK WITH HIGH FLOW NASAL CANNULA AT THIS TIME DUE TO LOW SPO2. WILL CONTINUE TO MONITOR.
--- NOTE | 2022-07-05 00:15 | NUR ---
RN NOTES SPOKE TO MILY (DAUGHTER) AND CHICHO (SON), THEY WANT TO DO CPR BUT NO TUBE NO VENTILATOR FOR THEIR FATHER. THEY WILL BRING THE ADVANCE DIRECTIVE TOMORROW. KATHERINE PAEZ MADE AWARE.
[2022-07-05 00:29] LABS: BILIRUBIN,DIRECT 0.2 mg/dL (0.0-0.2)
[2022-07-05] MEDS ORDERED: CEFEPIME 1 GM VIAL ONE (02:23)
--- NOTE | 2022-07-05 04:28 | NUR ---
RT NOTE INCREASED FLOW TO 40 LPM. PT REMAINS ON HIGH FLOW AND 100% NONBREATHER MASK. ABG RESULTS REPORTED TO ELSA GLOVER.
[2022-07-05] MEDS ORDERED: FUROSEMIDE 20 MG/2 ML VIAL IV ONE (04:32)
[2022-07-05 04:38] LABS: ABG BASE EXCESS -0.2 mmol/L; ABG OXYGEN SATURATION 91.9 % (92.0-98.5); ABG PCO2 32.7 mmHg (35.0-45.0); ABG PH 7.465 (7.350-7.450); ABG PO2 65.2 mmHg (75.0-100.0); AaDO2 615.1 mmHg; COHb 0.4 % (0.5-1.5); MetHb 0.3 % (0.0-1.5); O2Hb 91.3 % (94.0-97.0); SITE, ABG Right Radial; VENT MODE, BG HFNC 100% + NRB
[2022-07-05] MEDS: IV NS 0.9% 250 ML IV PRN (04:47)
[2022-07-05] MEDS: CEFEPIME 2 GM in IV D5W 100 ML IV SCH ×2 (04:48→16:47)
[2022-07-05 04:58] LABS: BASOPHILS % (AUTO) 0.1 % (0.0-2.0); EOSINOPHILS % (AUTO) 0.1 % (0.0-6.0); HEMATOCRIT 31 % (39-51); HEMOGLOBIN 10.2 g/dL (13.5-17.5); LYMPHOCYTES # (AUTO) 0.2 K/uL (0.8-4.8); LYMPHOCYTES % (AUTO) 2.7 % (20.0-44.0); MEAN CORPUSCULAR HGB CONC 33 g/dl (31.0-36.0); MEAN CORPUSCULAR VOLUME 77 fL (80-96); MONOCYTES # (AUTO) 0.2 K/uL (0.1-1.30); NEUTROPHILS % (AUTO) 94.1 % (43.0-81.0); PLATELET COUNT (AUTO) 271 K/uL (150-450); WHITE BLOOD COUNT (AUTO) 6.3 K/uL (4.3-11.0)
--- NOTE | 2022-07-05 05:05 | NUR ---
RN NOTES NOTIFIED CLUB ATTENDANT МАРИЯ PAEZ REGARDING PATIENT LATEST ABG RESULT, NO NEW ORDER AT THIS TIME.
[2022-07-05 05:14] LABS: ALBUMIN 2.4 g/dL (3.4-5.0); BILIRUBIN,TOTAL 0.4 mg/dL (0.2-1.0); CALCIUM, SERUM 8.4 mg/dL (8.5-10.1); CREATININE 1.3 mg/dL (0.6-1.3); POTASSIUM 4.6 mmol/L (3.5-5.1); TOTAL PROTEIN, SERUM 6.8 g/dL (6.4-8.2)
[2022-07-05] MEDS ORDERED: BLOOD SUGAR DIAGNOSTIC 1 EACH STRIP VI SCH (07:30)
--- NOTE | 2022-07-05 07:31 | NUR ---
WOUND CARE CONSULT: REVIEWED CHART, NURSING DOCUMENTATION AND PHOTO WHICH INDICATES ULCER TO LEFT HEEL, PRESENT ON ADMISSION. DR LIVINGSTON CALLED FOR DPM CONSULT. DISCUSSED SKIN PROTECTION WITH NURSING STAFF. MD IN AGREEMENT WITH PLAN OF CARE.
[2022-07-05] MEDS ORDERED: Z GUARD REMEDY 4 OZ OINT TP PRN (08:00)
[2022-07-05] MEDS: PANTOPRAZOLE 40 MG VIAL IV SCH ×2 (08:14→21:35)
[2022-07-05] MEDS: ASPIRIN 81 MG TAB.CHEW PO SCH (08:14)
[2022-07-05] MEDS: CYANOCOBALAMIN 500 MCG TABLET PO SCH (08:14)
[2022-07-05] MEDS: ATORVASTATIN 40 MG TABLET PO SCH (08:15)
[2022-07-05] MEDS: LOSARTAN POTASSIUM 50 MG TABLET PO SCH (08:15)
[2022-07-05] MEDS: CARVEDILOL 12.5 MG TABLET PO SCH ×2 (08:15→21:36)
[2022-07-05] MEDS: AMLODIPINE BESYLATE 10 MG TABLET PO SCH (08:16)
[2022-07-05] MEDS: RANOLAZINE 500 MG TAB.ER.12H PO SCH ×2 (08:16→21:35)
[2022-07-05] MEDS: ENOXAPARIN SODIUM 80 MG/0.8 ML DISP.SYRIN SQ SCH ×2 (08:18→21:38)
[2022-07-05] MEDS: FENOFIBRATE NANOCRYS (145 MG) 145 MG TABLET PO SCH (08:27)
[2022-07-05] MEDS: FUROSEMIDE 100 MG/10 ML VIAL IV SCH ×3 (08:27→16:46)
[2022-07-05] MEDS ORDERED: DEXAMETHASONE SOD PHOSPHATE 4 MG/ML VIAL IV SCH (09:00)
--- NOTE | 2022-07-05 09:05 | NUR ---
RECEIVED A PHONECALL FROM MILY Macias-DAUGHTER AND MADE AWARE OF ALL DUE MEDS AND PER MILY "THAT'S OKAY."
--- NOTE | 2022-07-05 10:50 | NUR ---
CHARGE NURSE-ITA MADE AWARE THAT NO PHONE NUMBER LISTED FOR PT.'S FAMILY TO GET APPROVAL OF ACTEMRA MED.
--- NOTE | 2022-07-05 11:27 | NUR ---
DR PUGA AT THE UNIT MADE AWARE THAT NO PHONE NUMBER LISTED FOR PT.'S FAMILY TO GET APPROVAL OF ACTEMRA MED. CHARGE NURSE AWARE
[2022-07-05] MEDS ORDERED: INSULIN REGULAR, HUMAN 100 UNIT/ML 10 ML VIAL SQ PRN (12:00)
[2022-07-05] MEDS ORDERED: DEXTROSE 50%-WATER 50 ML DISP.SYRIN IV PRN ×2 (12:00)
[2022-07-05] MEDS ORDERED: BLOOD SUGAR DIAGNOSTIC 1 EACH STRIP IN SCH (12:00)
[2022-07-05] MEDS ORDERED: INSULIN REGULAR, HUMAN 100 UNIT/ML 3 ML VIAL SQ PRN (12:00)
--- NOTE | 2022-07-05 12:10 | NUR ---
RECEIVED A PHONECALL FROM MILY FRITZBYAN-DAUGHTER AND MADE AWARE REGARDING NEW MED-ACTEMRA PER MILY "I'LL THINK ABOUT IT" ; AND UPDATED HER PHONE NUMBER ON THE CHART RECORD. CHARGE NURSE AWARE.
--- NOTE | 2022-07-05 12:45 | NUR ---
PER MILY Macias-DAUGHTER " ACTEMRA MED. CAN BE GIVEN."
[2022-07-05] MEDS: BLOOD SUGAR DIAGNOSTIC 1 EACH STRIP IN SCH ×2 (12:59→18:03)
[2022-07-05] MEDS: INSULIN REGULAR, HUMAN 100 UNIT/ML 3 ML VIAL SQ PRN ×2 (13:04→18:05)
[2022-07-05] MEDS ORDERED: ACETAMINOPHEN 325 MG TABLET PO ONE (13:30)
[2022-07-05] MEDS ORDERED: diphenhydrAMINE HCL 50 MG/ML VIAL IV ONE (13:30)
[2022-07-05] MEDS ORDERED: TOCILIZUMAB 600 MG in IV NS 0.9% 70 ML IV ONE (14:00)
[2022-07-05] MEDS: THERAHONEY GEL 1.5 OZ TUBE TP SCH (17:52)
[2022-07-06] VITALS (26 sets, daily range): BP systolic 104–134; BP diastolic 32–96
[2022-07-06] MEDS: BLOOD SUGAR DIAGNOSTIC 1 EACH STRIP IN SCH ×4 (00:20→17:43)
[2022-07-06] MEDS: INSULIN REGULAR, HUMAN 100 UNIT/ML 3 ML VIAL SQ PRN ×4 (00:25→17:46)
[2022-07-06] MEDS: CEFEPIME 2 GM in IV D5W 100 ML IV SCH ×2 (04:41→16:35)
[2022-07-06] MEDS: IV NS 0.9% 250 ML IV PRN (04:44)
[2022-07-06 05:08] LABS: BASOPHILS % (AUTO) 0.3 % (0.0-2.0); EOSINOPHILS % (AUTO) 0.1 % (0.0-6.0); HEMATOCRIT 31 % (39-51); HEMOGLOBIN 10.5 g/dL (13.5-17.5); LYMPHOCYTES # (AUTO) 0.2 K/uL (0.8-4.8); MEAN CORPUSCULAR HGB CONC 34 g/dl (31.0-36.0); MEAN CORPUSCULAR VOLUME 76 fL (80-96); MONOCYTES # (AUTO) 0.3 K/uL (0.1-1.30); MONOCYTES % (AUTO) 3.4 % (2.0-12.0); NEUTROPHILS # (AUTO) 7.1 K/uL (1.8-8.9); NEUTROPHILS % (AUTO) 93.2 % (43.0-81.0); PLATELET COUNT (AUTO) 312 K/uL (150-450); RED BLOOD CELL COUNT(AUTO) 4.09 MIL/uL (4.5-6.0); WHITE BLOOD COUNT (AUTO) 7.6 K/uL (4.3-11.0)
[2022-07-06 05:21] LABS: ALANINE AMINOTRANSFERASE 31 U/L (12-78); ALBUMIN 2.3 g/dL (3.4-5.0); ALKALINE PHOSPHATASE 76 U/L (46-116); ASPARTATE AMINOTRANSFERASE 45 U/L (15-37); BILIRUBIN,TOTAL 0.4 mg/dL (0.2-1.0); CALCIUM, SERUM 8.5 mg/dL (8.5-10.1); CARBON DIOXIDE 30 mmol/L (21-32); CHLORIDE 101 mmol/L (98-107); CREATININE 1.4 mg/dL (0.6-1.3); GLUCOSE 154 mg/dL (74-106); MAGNESIUM 2.1 mg/dL (1.8-2.4); PHOSPHORUS 3.8 mg/dL (2.5-4.9); POTASSIUM 3.8 mmol/L (3.5-5.1); SODIUM SERUM 137 mmol/L (136-145); TOTAL PROTEIN, SERUM 6.7 g/dL (6.4-8.2); UREA NITROGEN, BLOOD 46 mg/dL (7-18)
[2022-07-06 05:59] LABS: CREATINE KINASE, TOTAL 64 U/L (39-308); FERRITIN 3426 ng/mL (8-388)
--- NOTE | 2022-07-06 07:10 | NUR ---
OIL FIELD PUMPER OPENING NOTE: PT. RECEIVED IN BED, AWAKE, AOX4, ABLE TO VERBALIZE NEEDS. NO COMPLAINTS OF PAIN AT THIS TIME. ON HIGH FLOW NC AT 40 L/MIN, FIO2 - 100% AND NON-REBREATHER MASK AT 15 L/MIN. NO S/S OF RESPIRATORY DISTRESS. CERTIFIED SHORTHAND REPORTER READS AFIB CONTROLLED WITH HR OF 68 BPM AT THIS TIME. LEFT HEEL WOUND NOTED, DRESSING C/D/I. WILL DO WOUND TREATMENT ORDERED. PT. REMAINS NPO EXCEPT MEDS PT. STARTS TO DESATURATE WITHOUT NON-REBREATHER MASK. IV ACCESS ON R FOREARM #18G, PATENT AND SALINE LOCKED; L AC #18G WITH NS RUNNING AT TKO. IV SITE DRESSINGS C/D/I WITH NO S/S OF INFILTRATION. SAFETY MEASURES IN PLACE: BED IN LOWEST AND LOCKED POSITION, HOB ELEVATED AT 45 DEGREES, BED ALARM ON, CALL LIGHT WITHIN REACH, SIDE RAILS UP X2. WILL ENCOURAGE FREQUENT REPOSITIONING IN BED AT LEAST Q2H. WILL CONTINUE TO MONITOR PT. FOR ANY CHANGES.
[2022-07-06] MEDS: PANTOPRAZOLE 40 MG VIAL IV SCH (08:08)
[2022-07-06] MEDS: DEXAMETHASONE SOD PHOSPHATE 10 MG/ML VIAL IV SCH (08:09)
[2022-07-06] MEDS: ASPIRIN 81 MG TAB.CHEW PO SCH (08:09)
[2022-07-06] MEDS: CYANOCOBALAMIN 500 MCG TABLET PO SCH (08:09)
[2022-07-06] MEDS: RANOLAZINE 500 MG TAB.ER.12H PO SCH ×2 (08:10→21:12)
[2022-07-06] MEDS: LOSARTAN POTASSIUM 50 MG TABLET PO SCH (08:10)
[2022-07-06] MEDS: AMLODIPINE BESYLATE 10 MG TABLET PO SCH (08:10)
[2022-07-06] MEDS: CARVEDILOL 12.5 MG TABLET PO SCH ×2 (08:10→21:12)
[2022-07-06] MEDS: FENOFIBRATE NANOCRYS (145 MG) 145 MG TABLET PO SCH (08:10)
[2022-07-06] MEDS: ATORVASTATIN 40 MG TABLET PO SCH (08:11)
[2022-07-06] MEDS: THERAHONEY GEL 1.5 OZ TUBE TP SCH ×2 (08:13→16:36)
[2022-07-06] MEDS: ENOXAPARIN SODIUM 80 MG/0.8 ML DISP.SYRIN SQ SCH ×2 (08:13→21:13)
--- NOTE | 2022-07-06 09:00 | NUR ---
IRRIGATION FLUME LAYER NOTE: CONFIRMED PT.'S CODE STATUS WITH DAUGHTER MILY - ON THE PHONE WITH IRRIGATION FLUME LAYER KAI. DAUGHTER IS OK FOR PT. TO BE RESUSCITATED WITH CHEST COMPRESSIONS BUT NO INTUBATION, IN CASE OF CODE BLUE. DAUGHTER MILY SAID SHE IS THE PRIMARY DECISION MAKER FOR PT.'S HEALTHCARE.
--- NOTE | 2022-07-06 19:10 | NUR ---
CUSTOMER SUCCESS MANAGER CLOSING NOTE: PT. REMAINS IN BED, AWAKE, AOX4, ABLE TO VERBALIZE NEEDS. NO COMPLAINTS OF PAIN THIS SHIFT, AFEBRILE. STILL ON HIGH FLOW NC AT 40 L/MIN, FIO2 - 100% AND NON-REBREATHER MASK AT 15 L/MIN. NO S/S OF RESPIRATORY DISTRESS. DEWATERER OPERATOR READS AFIB CONTROLLED WITH HR OF 78 BPM AT THIS TIME. WOUND TREATMENT DONE ORDERED. PT. REMAINS NPO EXCEPT MEDS PT. STARTS TO DESATURATE WITHOUT NON-REBREATHER MASK. IV ACCESS ON R FOREARM #18G, PATENT AND SALINE LOCKED; L AC #18G WITH NS RUNNING AT TKO. IV SITE DRESSINGS C/D/I WITH NO S/S OF INFILTRATION. SAFETY MEASURES MAINTAINED: BED IN LOWEST AND LOCKED POSITION, HOB ELEVATED AT 45 DEGREES, BED ALARM ON, CALL LIGHT WITHIN REACH, SIDE RAILS UP X2. ENCOURAGED FREQUENT REPOSITIONING IN BED AT LEAST Q2H. ENDORSED CONTINUITY OF CARE TO WINE STEWARD RN.
[2022-07-06] MEDS: PANTOPRAZOLE 40 MG TABLET.DR PO SCH (21:12)
[2022-07-07] VITALS (24 sets, daily range): BP systolic 92–159; BP diastolic 41–83
[2022-07-07] MEDS: BLOOD SUGAR DIAGNOSTIC 1 EACH STRIP IN SCH ×4 (00:51→18:29)
[2022-07-07] MEDS: INSULIN REGULAR, HUMAN 100 UNIT/ML 3 ML VIAL SQ PRN ×3 (01:02→18:31)
[2022-07-07] MEDS: CEFEPIME 2 GM in IV D5W 100 ML IV SCH ×2 (04:27→16:01)
[2022-07-07 04:37] LABS: BASOPHILS % (AUTO) 0.2 % (0.0-2.0); EOSINOPHILS % (AUTO) 0.6 % (0.0-6.0); HEMATOCRIT 32 % (39-51); HEMOGLOBIN 10.6 g/dL (13.5-17.5); LYMPHOCYTES # (AUTO) 0.3 K/uL (0.8-4.8); LYMPHOCYTES % (AUTO) 4.2 % (20.0-44.0); MEAN CORPUSCULAR HGB CONC 33 g/dl (31.0-36.0); MEAN CORPUSCULAR VOLUME 77 fL (80-96); MONOCYTES # (AUTO) 0.2 K/uL (0.1-1.30); MONOCYTES % (AUTO) 3.6 % (2.0-12.0); NEUTROPHILS % (AUTO) 91.4 % (43.0-81.0); PLATELET COUNT (AUTO) 321 K/uL (150-450); WHITE BLOOD COUNT (AUTO) 6.6 K/uL (4.3-11.0)
[2022-07-07 04:57] LABS: ALANINE AMINOTRANSFERASE 25 U/L (12-78); ALBUMIN 2.3 g/dL (3.4-5.0); ALKALINE PHOSPHATASE 96 U/L (46-116); ASPARTATE AMINOTRANSFERASE 42 U/L (15-37); BILIRUBIN,TOTAL 0.5 mg/dL (0.2-1.0); CALCIUM, SERUM 8.1 mg/dL (8.5-10.1); CARBON DIOXIDE 30 mmol/L (21-32); CHLORIDE 104 mmol/L (98-107); CREATININE 1.5 mg/dL (0.6-1.3); GLUCOSE 113 mg/dL (74-106); MAGNESIUM 2.4 mg/dL (1.8-2.4); PHOSPHORUS 3.7 mg/dL (2.5-4.9); POTASSIUM 3.9 mmol/L (3.5-5.1); SODIUM SERUM 140 mmol/L (136-145); TOTAL PROTEIN, SERUM 6.4 g/dL (6.4-8.2); UREA NITROGEN, BLOOD 51 mg/dL (7-18)
--- NOTE | 2022-07-07 05:57 | NUR ---
ICU/RN: LINENS CHANGED. PT REPOSITIONED FOR COMFORT. WOUND PHOTO TAKEN AND PLACED IN CHART.
[2022-07-07] MEDS: IV NS 0.9% 250 ML IV PRN (06:26)
--- NOTE | 2022-07-07 07:10 | NUR ---
SUGAR DRIER OPENING NOTE: RECEIVED PT. IN BED, AWAKE, AOX4, ABLE TO VERBALIZE NEEDS. NO COMPLAINTS OF PAIN THIS SHIFT. STILL ON HIGH FLOW NC AT 40 L/MIN, FIO2 - 100% AND NON-REBREATHER MASK AT 15 L/MIN. NO S/S OF RESPIRATORY DISTRESS. SCHOOL PSYCHOLOGY SPECIALIST READS AFIB CONTROLLED WITH HR OF 77 BPM AT THIS TIME. L HEEL WOUND PRESENT, WILL DO WOUND TREATMENT ORDERED. PT. REMAINS NPO EXCEPT MEDS PT. STARTS TO DESATURATE WITHOUT NON-REBREATHER MASK. IV ACCESS ON R FOREARM #18G, PATENT AND SALINE LOCKED; L AC #18G WITH NS RUNNING AT TKO. IV SITE DRESSINGS C/D/I WITH NO S/S OF INFILTRATION. SAFETY MEASURES IN PLACE: BED IN LOWEST AND LOCKED POSITION, HOB ELEVATED AT 45 DEGREES, BED ALARM ON, CALL LIGHT WITHIN REACH, SIDE RAILS UP X2. WILL ENCOURAGE FREQUENT REPOSITIONING IN BED AT LEAST Q2H. WILL CONTINUE TO MONITOR PT. FOR ANY CHANGES.
[2022-07-07] MEDS: ATORVASTATIN 40 MG TABLET PO SCH (08:16)
[2022-07-07] MEDS: CYANOCOBALAMIN 500 MCG TABLET PO SCH (08:16)
[2022-07-07] MEDS: FENOFIBRATE NANOCRYS (145 MG) 145 MG TABLET PO SCH (08:16)
[2022-07-07] MEDS: DEXAMETHASONE SOD PHOSPHATE 10 MG/ML VIAL IV SCH (08:16)
[2022-07-07] MEDS: LOSARTAN POTASSIUM 50 MG TABLET PO SCH (08:17)
[2022-07-07] MEDS: RANOLAZINE 500 MG TAB.ER.12H PO SCH ×2 (08:17→20:16)
[2022-07-07] MEDS: CARVEDILOL 12.5 MG TABLET PO SCH ×2 (08:17→20:16)
[2022-07-07] MEDS: ASPIRIN 81 MG TAB.CHEW PO SCH (08:17)
[2022-07-07] MEDS: AMLODIPINE BESYLATE 10 MG TABLET PO SCH (08:17)
[2022-07-07] MEDS: PANTOPRAZOLE 40 MG TABLET.DR PO SCH ×2 (08:18→20:16)
[2022-07-07] MEDS: ENOXAPARIN SODIUM 80 MG/0.8 ML DISP.SYRIN SQ SCH ×2 (08:19→20:17)
[2022-07-07] MEDS: THERAHONEY GEL 1.5 OZ TUBE TP SCH ×2 (08:45→16:03)
--- NOTE | 2022-07-07 15:30 | NUR ---
STERILE SUPERVISOR NOTE: PT. STILL NPO EXCEPT MEDS. WAITING FOR SPEECH THERAPIST SWALLOW EVAL. PT. COMPLAINING THAT HE'S VERY HUNGRY. DID NURSING BEDSIDE SWALLOW SCREEN. PT. ABLE TO TOLERATE ICE CHIPS AND THEN A CUP OF WATER WITH NO STRAW. NO COUGHING OR DROOLING NOTED. DR. MONTOYA NOTIFIED AND ORDERED PT. TO BE STARTED ON CONSISTENT LOW CARB DIET (SOFT) STARTING DINNER. WILL FEED PT. TO MAKE SURE HE'S BACK ON NON-REBREATHER MASK WHEN HE DESATURATES AND CONTINUE TO MONITOR FOR S/S OF ASPIRATION.
--- NOTE | 2022-07-07 18:15 | NUR ---
HULL LINE CREW MEMBER NOTE: PT. HAD DINNER AND CONSUMED 50% OF MEAL. NO S/S OF ASPIRATION NOTED. WHILE EATING, PT. DESATURATED DOWN TO 88-89% WITHOUT THE NON-REBREATHER MASK. HIGH FLOW NASAL CANNULA AT 40 L/MIN, FIO2 - 100% KEPT WHILE EATING. PT. TOLERATED FEEDING WITHOUT PUTTING THE NON-REBREATHER MASK ON THROUGHOUT THE MEAL. WILL CONTINUE TO MONITOR FOR S/S OF ASPIRATION.
--- NOTE | 2022-07-07 19:15 | NUR ---
CUT ROLL MACHINE OPERATOR CLOSING NOTE: PT. REMAINS IN BED, AWAKE, AOX4, ABLE TO VERBALIZE NEEDS. NO COMPLAINTS OF PAIN THIS SHIFT. STILL ON HIGH FLOW NC AT 40 L/MIN, FIO2 - 100% AND NON-REBREATHER MASK AT 15 L/MIN. NO S/S OF RESPIRATORY DISTRESS. HIDE AND SKIN CLASSER READS AFIB CONTROLLED WITH HR OF 81 BPM AT THIS TIME. WOUND TREATMENT DONE ORDERED. PT. STARTED ON LOW CONSISTENT CARB DIET (SOFT) AT DINNER. TOLERATED FEEDING WELL. ON BRICE CATH, DRAINED 780 ML CLEAR YELLOW URINE THIS SHIFT. IV ACCESS ON R FOREARM #18G, PATENT AND SALINE LOCKED; L AC #18G WITH NS RUNNING AT TKO. IV SITE DRESSINGS C/D/I WITH NO S/S OF INFILTRATION. SAFETY MEASURES MAINTAINED: BED IN LOWEST AND LOCKED POSITION, HOB ELEVATED AT 45 DEGREES, BED ALARM ON, CALL LIGHT WITHIN REACH, SIDE RAILS UP X2. ENCOURAGED FREQUENT REPOSITIONING IN BED AT LEAST Q2H. ENDORSED CONTINUITY OF CARE TO EQUIPMENT DRIVER RN.
[2022-07-07] MEDS ORDERED: DEXTROSE 50%-WATER 50 ML DISP.SYRIN IV PRN (23:00)
[2022-07-08] VITALS (26 sets, daily range): BP systolic 95–132; BP diastolic 47–82
[2022-07-08] MEDS: CEFEPIME 2 GM in IV D5W 100 ML IV SCH ×2 (04:19→16:21)
[2022-07-08 05:33] LABS: EOSINOPHILS % (AUTO) 1.9 % (0.0-6.0); HEMATOCRIT 33 % (39-51); HEMOGLOBIN 10.9 g/dL (13.5-17.5); LYMPHOCYTES # (AUTO) 0.2 K/uL (0.8-4.8); MEAN CORPUSCULAR HGB CONC 33 g/dl (31.0-36.0); MEAN CORPUSCULAR VOLUME 78 fL (80-96); MONOCYTES # (AUTO) 0.2 K/uL (0.1-1.30); MONOCYTES % (AUTO) 2.7 % (2.0-12.0); NEUTROPHILS # (AUTO) 6.4 K/uL (1.8-8.9); NEUTROPHILS % (AUTO) 92.4 % (43.0-81.0); PLATELET COUNT (AUTO) 304 K/uL (150-450); RED BLOOD CELL COUNT(AUTO) 4.29 MIL/uL (4.5-6.0); WHITE BLOOD COUNT (AUTO) 6.9 K/uL (4.3-11.0)
[2022-07-08 05:48] LABS: ALBUMIN 2.4 g/dL (3.4-5.0); BILIRUBIN,TOTAL 0.5 mg/dL (0.2-1.0); CALCIUM, SERUM 8.1 mg/dL (8.5-10.1); CREATININE 1.3 mg/dL (0.6-1.3); MAGNESIUM 2.3 mg/dL (1.8-2.4); PHOSPHORUS 3.2 mg/dL (2.5-4.9); POTASSIUM 4.1 mmol/L (3.5-5.1); TOTAL PROTEIN, SERUM 6.3 g/dL (6.4-8.2)
[2022-07-08] MEDS: IV NS 0.9% 250 ML IV PRN (06:30)
--- NOTE | 2022-07-08 07:10 | NUR ---
MAIL CLERKS SUPERVISOR OPENING NOTE: RECEIVED PT. IN BED, AWAKE, AOX4, ABLE TO VERBALIZE NEEDS. NO COMPLAINTS OF PAIN THIS SHIFT. STILL ON HIGH FLOW NC AT 40 L/MIN, FIO2 - 100% AND NON-REBREATHER MASK AT 15 L/MIN. NO S/S OF RESPIRATORY DISTRESS. CONSUMER ADVOCATE READS AFIB CONTROLLED WITH HR OF 79 BPM AT THIS TIME. L HEEL WOUND PRESENT, WILL DO WOUND TREATMENT ORDERED. PT. HAS BRICE CATH DRAINING CLEAR SHELDON URINE BELOW BLADDER. IV ACCESS ON R FOREARM #18G, PATENT AND SALINE LOCKED; L AC #18G WITH NS RUNNING AT TKO. IV SITE DRESSINGS C/D/I WITH NO S/S OF INFILTRATION. SAFETY MEASURES IN PLACE: BED IN LOWEST AND LOCKED POSITION, HOB ELEVATED AT 45 DEGREES, BED ALARM ON, CALL LIGHT WITHIN REACH, SIDE RAILS UP X2. WILL ENCOURAGE FREQUENT REPOSITIONING IN BED AT LEAST Q2H. WILL CONTINUE TO MONITOR PT. FOR ANY CHANGES.
[2022-07-08] MEDS: BLOOD SUGAR DIAGNOSTIC 1 EACH STRIP VI SCH ×4 (07:33→21:17)
[2022-07-08] MEDS: INSULIN REGULAR, HUMAN 100 UNIT/ML 3 ML VIAL SQ PRN ×3 (07:38→18:47)
[2022-07-08] MEDS: FENOFIBRATE NANOCRYS (145 MG) 145 MG TABLET PO SCH (08:19)
[2022-07-08] MEDS: CARVEDILOL 12.5 MG TABLET PO SCH ×2 (08:19→21:00)
[2022-07-08] MEDS: RANOLAZINE 500 MG TAB.ER.12H PO SCH ×2 (08:19→21:15)
[2022-07-08] MEDS: PANTOPRAZOLE 40 MG TABLET.DR PO SCH ×2 (08:20→21:15)
[2022-07-08] MEDS: CYANOCOBALAMIN 500 MCG TABLET PO SCH (08:20)
[2022-07-08] MEDS: ATORVASTATIN 40 MG TABLET PO SCH (08:20)
[2022-07-08] MEDS: LOSARTAN POTASSIUM 50 MG TABLET PO SCH (08:21)
[2022-07-08] MEDS: ASPIRIN 81 MG TAB.CHEW PO SCH (08:21)
[2022-07-08] MEDS: AMLODIPINE BESYLATE 10 MG TABLET PO SCH (08:22)
[2022-07-08] MEDS: DEXAMETHASONE SOD PHOSPHATE 10 MG/ML VIAL IV SCH (08:23)
[2022-07-08] MEDS: ENOXAPARIN SODIUM 80 MG/0.8 ML DISP.SYRIN SQ SCH ×2 (08:24→21:16)
[2022-07-08] MEDS: THERAHONEY GEL 1.5 OZ TUBE TP SCH ×2 (08:25→16:23)
--- NOTE | 2022-07-08 08:34 | NUR ---
RT note: Patient found on HFNC fi02 100% @40 lpm with NRB mask. sp02=93%. Patient is awake and alert. Mask removed and sp02 remained above 90%. Will continue to monitor patient.
--- NOTE | 2022-07-08 19:15 | NUR ---
SENIOR DESIGN ENGINEER CLOSING NOTE: PT. REMAINS IN BED, AWAKE, AOX4, ABLE TO VERBALIZE NEEDS. NO COMPLAINTS OF PAIN THIS SHIFT. STILL ON HIGH FLOW NC AT 40 L/MIN, FIO2 - 100% AND NON-REBREATHER MASK AT 15 L/MIN. NO S/S OF RESPIRATORY DISTRESS. SALES OPERATIONS COORDINATOR READS AFIB CONTROLLED WITH HR OF 74 BPM AT THIS TIME. WOUND TREATMENT DONE ORDERED. PT. HAS BRICE CATH DRAINED 700 ML CLEAR SHELDON URINE THIS SHIFT. IV ACCESS ON R FOREARM #18G, PATENT AND SALINE LOCKED; L AC #18G WITH NS RUNNING AT TKO. IV SITE DRESSINGS C/D/I WITH NO S/S OF INFILTRATION. PT.'S LOWEST O2 SAT OFF NON-REBREATHER MASK WAS 81% THROUGHOUT SHIFT. ABLE TO TOLERATE MEALS WITHOUT PUTTING BACK NON-REBREATHER MASK IN BETWEEN. LOWEST O2 SAT DURING MEALS WAS 86%, NO COMPLAINTS OF DIZZINESS. SAFETY MEASURES MAINTAINED: BED IN LOWEST AND LOCKED POSITION, HOB ELEVATED AT 45 DEGREES, BED ALARM ON, CALL LIGHT WITHIN REACH, SIDE RAILS UP X2. ENCOURAGED FREQUENT REPOSITIONING IN BED AT LEAST Q2H. ENDORSED CONTINUITY OF CARE TO FIELD EDUCATION DIRECTOR RN TAMMY.
[2022-07-08] MEDS: *INSULIN REGULAR(HUMULIN R)HUM 100 UNIT/ML VIAL SQ PRN (21:33)
[2022-07-09] VITALS (25 sets, daily range): BP systolic 96–133; BP diastolic 19–81
[2022-07-09] MEDS: CEFEPIME 2 GM in IV D5W 100 ML IV SCH ×2 (04:00→16:21)
[2022-07-09] MEDS: IV NS 0.9% 250 ML IV PRN ×2 (04:30→16:23)
[2022-07-09 04:34] LABS: EOSINOPHILS % (AUTO) 1.6 % (0.0-6.0); HEMATOCRIT 35 % (39-51); HEMOGLOBIN 11.2 g/dL (13.5-17.5); LYMPHOCYTES # (AUTO) 0.2 K/uL (0.8-4.8); LYMPHOCYTES % (AUTO) 2.4 % (20.0-44.0); MEAN CORPUSCULAR HGB CONC 32 g/dl (31.0-36.0); MEAN CORPUSCULAR VOLUME 78 fL (80-96); MONOCYTES # (AUTO) 0.1 K/uL (0.1-1.30); MONOCYTES % (AUTO) 1.6 % (2.0-12.0); NEUTROPHILS % (AUTO) 94.4 % (43.0-81.0); PLATELET COUNT (AUTO) 318 K/uL (150-450); RED BLOOD CELL COUNT(AUTO) 4.45 MIL/uL (4.5-6.0); WHITE BLOOD COUNT (AUTO) 8.4 K/uL (4.3-11.0)
[2022-07-09 04:48] LABS: ALBUMIN 2.6 g/dL (3.4-5.0); BILIRUBIN,TOTAL 0.4 mg/dL (0.2-1.0); CALCIUM, SERUM 8.2 mg/dL (8.5-10.1); CREATININE 1.2 mg/dL (0.6-1.3); MAGNESIUM 2.4 mg/dL (1.8-2.4); PHOSPHORUS 2.6 mg/dL (2.5-4.9); POTASSIUM 3.9 mmol/L (3.5-5.1); TOTAL PROTEIN, SERUM 6.5 g/dL (6.4-8.2)
--- NOTE | 2022-07-09 08:00 | NUR ---
RN NOTES RECEIVED PATIENT A/AOX4, ABLE TO VERBALIZE NEEDS, REFUSED PAIN, NO ACUTE RESPIRATORY DISTRESS, PATIENT WAS COUGHING BROWN COLOR WITH BLOOD ON IT. STILL ON HIGH FLOW NC AT 40 L/MIN, FIO2 - 100% AND NON-REBREATHER MASK AT 15 L/MIN. FEEDLOT MANAGER READS AFIB CONTROLLED WITH HR OF 84 BPM, BRICE CATH DRAINING DARK COLOR, ENCOURAGED TO INCREASE FLUID INTAKE, IV ACCESS ON R FOREARM #18G, PATENT AND SALINE LOCKED; L AC #18G WITH NS RUNNING AT TKO. PATIENT ABLE TO TURN AND REPOSTION IN THE BED BY SELF, TOLERATED BREAKFASR 50% SELF, USING BEDSIDE COMMODE, BM X1, AM NEEDS DONE, DUE MEDICATIOON ADMINISTERED. BS-161 MG/DL COVERAGE GIVEN, CALL LIGHT WITHIN TO REACH. WILL FOLLOW UP .
[2022-07-09] MEDS: LOSARTAN POTASSIUM 50 MG TABLET PO SCH (08:03)
[2022-07-09] MEDS: RANOLAZINE 500 MG TAB.ER.12H PO SCH ×2 (08:03→21:32)
[2022-07-09] MEDS: FENOFIBRATE NANOCRYS (145 MG) 145 MG TABLET PO SCH (08:03)
[2022-07-09] MEDS: ATORVASTATIN 40 MG TABLET PO SCH (08:03)
[2022-07-09] MEDS: AMLODIPINE BESYLATE 10 MG TABLET PO SCH (08:04)
[2022-07-09] MEDS: ASPIRIN 81 MG TAB.CHEW PO SCH (08:04)
[2022-07-09] MEDS: DEXAMETHASONE SOD PHOSPHATE 10 MG/ML VIAL IV SCH (08:04)
[2022-07-09] MEDS: PANTOPRAZOLE 40 MG TABLET.DR PO SCH ×2 (08:04→21:33)
[2022-07-09] MEDS: CYANOCOBALAMIN 500 MCG TABLET PO SCH (08:04)
[2022-07-09] MEDS: CARVEDILOL 12.5 MG TABLET PO SCH ×2 (08:05→21:33)
[2022-07-09] MEDS: ENOXAPARIN SODIUM 80 MG/0.8 ML DISP.SYRIN SQ SCH ×2 (08:05→21:34)
[2022-07-09] MEDS: THERAHONEY GEL 1.5 OZ TUBE TP SCH ×2 (08:06→16:19)
[2022-07-09] MEDS: BLOOD SUGAR DIAGNOSTIC 1 EACH STRIP VI SCH ×4 (08:07→21:33)
[2022-07-09] MEDS: INSULIN REGULAR, HUMAN 100 UNIT/ML 3 ML VIAL SQ PRN ×3 (08:40→16:43)
[2022-07-09] MEDS ORDERED: GUAIFENESIN/D-METHORPHAN HB 5 ML UDC PO PRN (10:00)
--- NOTE | 2022-07-09 12:17 | NUR ---
RN NOTES BS-247 MG/DL COVERAGE GIVEN, ALSO ADMINISTERED ROBITUSSIN SYRUP 5 MG PRN PER PATIENT RECUEST FOR COUGHING.. TOLERATED LUNCH 70% SELF, WILL FOLLOW UP.
--- NOTE | 2022-07-09 18:30 | NUR ---
rn notes bs-350mg/dl coverage given, patiernt sitting edge of the bed and tolerated diner 50%, no acute respiratory distress, urine output was 750 ml. encouraged to increase fluid intake. call light within to reach. endorsed oncoming nurse nury.
[2022-07-09] MEDS: *INSULIN REGULAR(HUMULIN R)HUM 100 UNIT/ML VIAL SQ PRN (22:21)
[2022-07-10] VITALS (27 sets, daily range): BP systolic 55–148; BP diastolic 40–107
[2022-07-10] MEDS ORDERED: HYDROCODONE/APAP 10/325MG TABLET PO PRN (03:30)
[2022-07-10] MEDS: NITROGLYCERIN 0.4 MG/TAB BOTTLE SL PRN ×3 (03:30→03:40)
--- NOTE | 2022-07-10 04:00 | NUR ---
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 COMPLAINING OF CHEST PRESSURE TO UPPER CHEST WALL; EKG AND CXR ORDERED. GLUCOSE CHECKED AND IT WAS 94 AT 0204 PER PT THAT LEVEL IS TOO LOW FOR HIM AND PT ASKING FOR JUICE. PER PT HIS SUGARS ARE USUALLY 200 AND HE DOES NOT DO WELL WITH THIS LOW BLOOD SUGAR. PT GIVEN JUICE. GLUCOSE RECHECKED AT 0243 IT WAS 134 AND AT 0306 IT WAS 170. PT ALSO NOTED TO BE CONGESTED AND NT SUCTION DONE BY RT WITH MIN OUTPUT; ENCOURAGED PT TO COUGH. PT CONTINUED TO COMPLAIN OF CHEST PRESSURE AND NITRO 0.4 MG SL GIVEN Q5MIN x3. PT STATED SOME RELIEF OF PAIN. PTS DAUGHTER KEPT INFORMED OF PTS CONDITON AND ALSO STATED THAT THAT GLUCOSE LEVEL IS TOO LOW FOR HIM. DAUGHTER WISHES FOR MD TO CALL HER AND GIVEN UPDATE ON PLAN OF CARE; SHE WOULD ALSO LIKE GLUCOSE LEVELS MAINTAINED 180-200; SHE WANTS TO BE INFORMED OF ANY MEDICATION CHANGES AND IS REQUESTING PT BE TESTED FOR COVID SO THAT THEY MAY VISIT HIM.
[2022-07-10] MEDS: CEFEPIME 2 GM in IV D5W 100 ML IV SCH ×2 (05:00→16:54)
[2022-07-10 05:37] LABS: BASOPHILS % (AUTO) 0.1 % (0.0-2.0); EOSINOPHILS % (AUTO) 1.8 % (0.0-6.0); HEMATOCRIT 34 % (39-51); HEMOGLOBIN 11.1 g/dL (13.5-17.5); LYMPHOCYTES # (AUTO) 0.2 K/uL (0.8-4.8); LYMPHOCYTES % (AUTO) 2.1 % (20.0-44.0); MEAN CORPUSCULAR HGB CONC 33 g/dl (31.0-36.0); MEAN CORPUSCULAR VOLUME 78 fL (80-96); MONOCYTES # (AUTO) 0.2 K/uL (0.1-1.30); MONOCYTES % (AUTO) 1.7 % (2.0-12.0); NEUTROPHILS # (AUTO) 8.6 K/uL (1.8-8.9); NEUTROPHILS % (AUTO) 94.3 % (43.0-81.0); PLATELET COUNT (AUTO) 288 K/uL (150-450); RED BLOOD CELL COUNT(AUTO) 4.39 MIL/uL (4.5-6.0); WHITE BLOOD COUNT (AUTO) 9.1 K/uL (4.3-11.0)
[2022-07-10 05:54] LABS: ALBUMIN 2.7 g/dL (3.4-5.0); BILIRUBIN,TOTAL 0.5 mg/dL (0.2-1.0); CREATININE 1.2 mg/dL (0.6-1.3); MAGNESIUM 2.2 mg/dL (1.8-2.4); PHOSPHORUS 2.8 mg/dL (2.5-4.9); POTASSIUM 4.3 mmol/L (3.5-5.1); TOTAL PROTEIN, SERUM 6.3 g/dL (6.4-8.2)
--- NOTE | 2022-07-10 06:54 | NUR ---
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 NURSE STAYED WITH PT UNTIL HE WAS RELAXED AND ABLE TO LAY BACK IN BED; PT NOTED TO DESAURATE TO MID 80s DURING THIS TIME.
--- NOTE | 2022-07-10 08:00 | NUR ---
RN NOTES RESUMED PATIENT HIGH FLOW NC AT 40 L/MIN, FIO2 - 100%, AND NON-REBREATHER MASK AT 15 L/MIN. TELEVISION MECHANIC READS AFIB CONTROLLED WITH HR OF 84 BPM, BRICE CATH DRAINING YELLOW COLOR, ENCOURAGED TO INCREASE FLUID INTAKE, IV ACCESS ON R FOREARM #18G, PATENT AND RUNNING AT TKO. PATIENT ABLE TO TURN AND REPOSTION IN THE BED BY SELF, TOLERATED BREAKFASR 50% SELF, AM NEEDS DONE, DUE MEDICATIOON ADMINISTERED. BS-198 MG/DL COVERAGE GIVEN, CALL LIGHT WITHIN TO REACH. WILL FOLLOW UP .
[2022-07-10] MEDS: CYANOCOBALAMIN 500 MCG TABLET PO SCH (08:35)
[2022-07-10] MEDS: CARVEDILOL 12.5 MG TABLET PO SCH ×2 (08:36→21:29)
[2022-07-10] MEDS: LOSARTAN POTASSIUM 50 MG TABLET PO SCH (08:36)
[2022-07-10] MEDS: FENOFIBRATE NANOCRYS (145 MG) 145 MG TABLET PO SCH (08:36)
[2022-07-10] MEDS: ATORVASTATIN 40 MG TABLET PO SCH (08:36)
[2022-07-10] MEDS: DEXAMETHASONE SOD PHOSPHATE 10 MG/ML VIAL IV SCH (08:37)
[2022-07-10] MEDS: PANTOPRAZOLE 40 MG TABLET.DR PO SCH ×2 (08:37→21:29)
[2022-07-10] MEDS: RANOLAZINE 500 MG TAB.ER.12H PO SCH ×2 (08:37→21:29)
[2022-07-10] MEDS: AMLODIPINE BESYLATE 10 MG TABLET PO SCH (08:37)
[2022-07-10] MEDS: ASPIRIN 81 MG TAB.CHEW PO SCH (08:37)
[2022-07-10] MEDS: ENOXAPARIN SODIUM 80 MG/0.8 ML DISP.SYRIN SQ SCH ×2 (08:39→21:30)
[2022-07-10] MEDS: BLOOD SUGAR DIAGNOSTIC 1 EACH STRIP VI SCH ×4 (08:40→21:27)
[2022-07-10] MEDS: THERAHONEY GEL 1.5 OZ TUBE TP SCH ×2 (09:09→16:55)
[2022-07-10] MEDS: INSULIN REGULAR, HUMAN 100 UNIT/ML 3 ML VIAL SQ PRN ×3 (09:24→18:18)
--- NOTE | 2022-07-10 10:02 | NUR ---
RN NOTES GET ORDER COVID RAPID TESTING ANTIGEN PER Dr SMITH. ORDERBTAKEN AND CARRIED OUT.
--- NOTE | 2022-07-10 10:11 | NUR ---
rn notes taken covid -19 rapid test specimen at this time, taken back to the laboratory for result.
--- NOTE | 2022-07-10 10:56 | NUR ---
WOUND CARE CONSULT: REVIEWED CHART, NURSING DOCUMENTATION AND PHOTO WHICH INDICATES ABRASION TO RT TOP OF EAR. RECOMMENDATIONS MADE FOR SKIN PROTECTION AND WOUND CARE. DISCUSSED WITH NURSING STAFF. MD IN AGREEMENT WITH PLAN OF CARE.
[2022-07-10 12:42] LABS: C-REACTIVE PROTEIN 2.4 mg/dL (0.0-0.9)
[2022-07-10] MEDS: NEOMY SULF/BACITRAC ZN/POLY 15 GM TUBE TP SCH (13:38)
--- NOTE | 2022-07-10 18:28 | NUR ---
RN NOTES BS-330 MG/DL, DUE MEDICATION ADMINISTERED, ASSIST PATIENT SITTING IN THE CHAIR, TOLERATED DINNER WELL, NO ACUTE RESPIRATORY DISTRESS. CALL LIGHT WITHIN TO REACH. ENDORSED ONCOMING NURSE MEGAN.
[2022-07-10] MEDS: FUROSEMIDE 20 MG/2 ML VIAL IV SCH (18:34)
--- NOTE | 2022-07-10 20:39 | NUR ---
ICU/RN: MINIMAL OUTPUT FROM BRICE CATH. SHAYLEE SOAKED WITH URINE. BRICE CATH FLUSHED VIA STERILE PROCEDURE 275 ML SHELDON URINE RETURNED TO BRICE BAG.
[2022-07-10] MEDS: *INSULIN REGULAR(HUMULIN R)HUM 100 UNIT/ML VIAL SQ PRN (21:39)
[2022-07-11] VITALS (25 sets, daily range): BP systolic 83–174; BP diastolic 36–94
[2022-07-11 05:06] LABS: EOSINOPHILS % (AUTO) 1.2 % (0.0-6.0); HEMATOCRIT 32 % (39-51); HEMOGLOBIN 10.4 g/dL (13.5-17.5); LYMPHOCYTES # (AUTO) 0.2 K/uL (0.8-4.8); LYMPHOCYTES % (AUTO) 2.1 % (20.0-44.0); MEAN CORPUSCULAR HGB CONC 33 g/dl (31.0-36.0); MEAN CORPUSCULAR VOLUME 77 fL (80-96); MONOCYTES # (AUTO) 0.2 K/uL (0.1-1.30); MONOCYTES % (AUTO) 2.3 % (2.0-12.0); NEUTROPHILS # (AUTO) 7.6 K/uL (1.8-8.9); NEUTROPHILS % (AUTO) 94.4 % (43.0-81.0); PLATELET COUNT (AUTO) 287 K/uL (150-450); WHITE BLOOD COUNT (AUTO) 8.1 K/uL (4.3-11.0)
[2022-07-11 05:28] LABS: ALBUMIN 2.7 g/dL (3.4-5.0); BILIRUBIN,TOTAL 0.4 mg/dL (0.2-1.0); CALCIUM, SERUM 8.1 mg/dL (8.5-10.1); CREATININE 1.1 mg/dL (0.6-1.3); MAGNESIUM 2.2 mg/dL (1.8-2.4); PHOSPHORUS 2.4 mg/dL (2.5-4.9); POTASSIUM 4.1 mmol/L (3.5-5.1); TOTAL PROTEIN, SERUM 6.3 g/dL (6.4-8.2)
[2022-07-11] MEDS: CEFEPIME 2 GM in IV D5W 100 ML IV SCH ×2 (05:46→17:31)
--- NOTE | 2022-07-11 07:05 | NUR ---
RFID MANAGER Bedside report taken from [facility] nurse Asad HUNTER. Pt AAO x3, restless and anxious. perrla. follows commands, moves bue and ble. pt on hiflow n/c 40 L and 100% and nonrebreather 15 L , spo2 86 %. nicole lung sounds diminished. bowel sounds present. pt will be npo at this time d/t respiratory distress when nonrebreather removed. pt has kasper intact and draining marvin color urine with sediments. pt afib on monitor, bue and ble pulses present. wounds noted, see flow sheet. all lines traced. other vitals stable. safety measures in place. will continue to monitor.
[2022-07-11] MEDS: BLOOD SUGAR DIAGNOSTIC 1 EACH STRIP VI SCH ×4 (08:00→21:19)
[2022-07-11] MEDS: FENOFIBRATE NANOCRYS (145 MG) 145 MG TABLET PO SCH (08:13)
[2022-07-11] MEDS: ATORVASTATIN 40 MG TABLET PO SCH (08:14)
[2022-07-11] MEDS: AMLODIPINE BESYLATE 10 MG TABLET PO SCH (08:14)
[2022-07-11] MEDS: CYANOCOBALAMIN 500 MCG TABLET PO SCH (08:15)
[2022-07-11] MEDS: LOSARTAN POTASSIUM 50 MG TABLET PO SCH (08:15)
[2022-07-11] MEDS: PANTOPRAZOLE 40 MG TABLET.DR PO SCH ×2 (08:15→21:18)
[2022-07-11] MEDS: RANOLAZINE 500 MG TAB.ER.12H PO SCH ×2 (08:15→21:18)
[2022-07-11] MEDS: ASPIRIN 81 MG TAB.CHEW PO SCH (08:15)
[2022-07-11] MEDS: DEXAMETHASONE SOD PHOSPHATE 10 MG/ML VIAL IV SCH (08:16)
[2022-07-11] MEDS: CARVEDILOL 12.5 MG TABLET PO SCH ×2 (08:16→21:18)
[2022-07-11] MEDS: FUROSEMIDE 20 MG/2 ML VIAL IV SCH (08:16)
[2022-07-11] MEDS: THERAHONEY GEL 1.5 OZ TUBE TP SCH ×2 (08:18→17:31)
[2022-07-11] MEDS: ENOXAPARIN SODIUM 80 MG/0.8 ML DISP.SYRIN SQ SCH ×2 (08:18→21:20)
[2022-07-11] MEDS: NEOMY SULF/BACITRAC ZN/POLY 15 GM TUBE TP SCH (08:18)
[2022-07-11] MEDS: *INSULIN REGULAR(HUMULIN R)HUM 100 UNIT/ML VIAL SQ PRN ×4 (08:44→21:47)
--- NOTE | 2022-07-11 08:45 | NUR ---
RAIL TECHNICIAN Dr Graham at bedside assessing pt and updated on pt status. md aware of pt O2 requirements, high flow n/c and nonrebreather. md also aware of pt anxiety. and that when pt gets anxious and starts to panic , talk and move around his spo2 drops to 82%. ok per md no new orders at this time, charge nurse Montez RN aware.
--- NOTE | 2022-07-11 10:25 | NUR ---
BUILDING SPECIALIST Dr Orona at bedside assessing pt and updated on pt status. md aware that when pt relaxed, calm and or sleep, vitals are wnl spo2 96-98 % but when pt aggitated, anxious, restless and talking on phone to family spo2 drops 82% sustained and hr >105. md to call pt familiy and update on pt condition and status. no new orders at this time.
[2022-07-11] MEDS ORDERED: NEUTRA PHOS 1 POWD.PACKET PO ONE (12:00)
--- NOTE | 2022-07-11 12:09 | NUR ---
RECORDS COORDINATOR Pt sitting up in bed feeding self lunch tray, pt tolerating well. no visible signs of aspiration noted. nonrebreather removed at this time, pt on hi flow n/c only and tolerating well. vitals stable. will continue to monitor.
--- NOTE | 2022-07-11 15:50 | NUR ---
OSHA INSPECTOR Pt bathed and cleaned. linen change done. skin check done, no new wounds noted. pt tolerated well. wound care and dressing change of left heel and wound care of right ear done per protocol, pt tolerated well. vitals stable. will continue to monitor.
[2022-07-11] MEDS ORDERED: ALPRAZOLAM 0.25 MG TABLET PO SCH (17:00)
[2022-07-11] MEDS ORDERED: GLUCERNA SHAKE 237 ML CAN PO SCH (17:00)
--- NOTE | 2022-07-11 17:50 | NUR ---
CUSTOMER FACILITIES SUPERVISOR BS 427, [address] units [address] given [address] Orona messaged per protocol, ok per md. no new orders at this time. charge nurse Montez HUNTER aware.
--- NOTE | 2022-07-11 17:55 | NUR ---
CONFIGURATION MANAGEMENT ADVISOR Pt sitting up in bed feeding self dinner tray. pt tolerating well. no visible signs of aspiration noted. vitals stable. will continue to monitor.
--- NOTE | 2022-07-11 18:59 | NUR ---
TIRE LAYER Bedside report given to [facility] nurse Angella HUNTER. pt awake, resting comfortable in bed. pt on hi flow n/c and nonrebreather, tolerating well spo2 93%. all lines traced. vitals stable. safety measures in place. pt clean and dry. no signs of acute distress at this time.
[2022-07-11] MEDS: NITROGLYCERIN 0.4 MG/TAB BOTTLE SL PRN ×3 (22:46→22:59)
[2022-07-12] VITALS (8 sets, daily range): BP systolic 112–139; BP diastolic 53–84
[2022-07-12] MEDS: CEFEPIME 2 GM in IV D5W 100 ML IV SCH (04:11)
[2022-07-12] MEDS: NITROGLYCERIN 0.4 MG/TAB BOTTLE SL PRN ×3 (05:00→05:12)
--- NOTE | 2022-07-12 06:18 | NUR ---
BOILER BLOWER PT WITH MULTIPLE EPISODES OF DESATURATION AND C/O CHEST PAIN; PT VERY RESTLESS WITH MOMENTS OF LETHARGY. PT TACHYPNEIC. PT GIVEN NITRO 0.5 MG SL Q5MIN x3 ON TWO OCCASIONS. PT SUCTIONED BLOODY TINGED SPUTUM. PT DAUGHTER AND DAUGHTER IN LAW CALLED MULTIPLE TIMES; TOLD DAUGHTER IT WASN'T POSSIBLE TO BE WITH PT AT ALL TIMES WELL ANSWERING THEIR MULTIPLE CALLS; FAMILY WANTS NURSE SITTING WITH HIM AT ALL TIMES AND ASKING WHAT SATURATION IS EVERY 3-5 MINS. DAUGHTER IN LAW ASKING FOR PT TO BE GIVEN ATIVAN HOWEVER DAUGHTER DOES NOT WANT ANY MEDICATIONS GIVEN TO PT. PER DAUGHTER IN LAW SHE WILL DISCUSS THIS WITH PTS DAUGHTER. ALSO DAUGHTER IN LAW SAID SHE WAS TOLD THE PT WAS DOING MUCH BETTER AND THAT THE CXR HAD IMPROVED. ENCOURAGED FAMILY TO SPEAK WITH .
--- NOTE | 2022-07-12 07:15 | NUR ---
CATERING CONVENTION SERVICES MANAGER Bedside report taken from [facility] nurse Angella HUNTER. pt restless and aggitated but awake, on highflow n/c and nonrebreather, spo2 70-80s. pt moving bue and ble, sinus tachycardia hr 120-130s on monitor. pt has kasper intact and draining, marvin colored urine with sediment. pt has wounds, see flowsheet. will notify .
--- NOTE | 2022-07-12 07:25 | NUR ---
SEAMER On phone with daughter Mica and informed that pt is in severe respiratory failure hr 130s and spo2 60-70s, and pt is declining and informed that pt is a do not intubate status, ask daughter if she still does not want father intubated because he is declining. informed daughter to discuss with family whether they want him to be intubated or not because his status has drastically declined and he is dying. per pt daughter she discussed with mother and family, they do not want pt intubated. they requested for Dr Orona to call them. charge nurse Herrmann RN aware of conversation with daughter. 0734- Dr Orona messaged and informed that pt declining as well as current vitals. pt in serious respiratory distress and that pt family refusing intubation but wants to talk to him md linnea to talk to family at this time. charge nurse Montez HUNTER aware. 0735- Demetria RT called to bedside, assessing pt and confirmed pt on highest amount of oxygen at this time. 0744- Dr Graham at bedside assessing pt and aware that per family request pt not to be intubated talking to charge nurse Herrmann RN at this time 0748- Pt PEA/ no breathing 0749- Pt declared 0754- Daughter Mica called per Dr Orona and informed of pt .
--- NOTE | 2022-07-12 08:03 | NUR ---
RN NOTE DR LEAL HERE TO SEE PT. PT DNI STATUS. FOUND PT APNEIC, PULSELESS, AREFLEXIVE. PRONOUNCED AT 0749. FAMILY NOTIFIED. DR SALDAÑA NOTIFIED.
--- NOTE | 2022-07-12 08:08 | NUR ---
CHILD LIFE SPECIALIST [employer] called spoke to kellee Artis not candidate for donation. Reference # [id number]
--- NOTE | 2022-07-12 08:15 | NUR ---
SUPERVISOR COVERING AND LINING Post mortem care done. awaiting for family to visit remains
--- NOTE | 2022-07-12 10:32 | NUR ---
HEALTHCARE TECHNICIAN Pt remains taken to morgue by security. Pt belongings remain in unit per pt daughter madeleine request for pickup.
--- NOTE | 2022-07-12 11:42 | NUR ---
LEAD PRESSMAN ROTO GRAVURE PRINTING Belongings including pt cell phone, phone financial systems manager and clothing given to charge nurse Montez HUNTER , kept at nursing station for pt daughter Mica to pickup today, per family request.
== END 2022-07-12 07:49 | DRG 871 ==
LOC: ER 18:50 → ICU 22:59
PROVIDERS: ADMIT Nurse Practitioner Acute Care; ATTEND Internal Medicine
PROC: XW033H5 Introduction of Tocilizumab into Peripheral Vein, Percutaneous Approach, New Technology Group 5 (ICD-10-PCS; principal; 2022-07-05)
PROC: 05HA33Z Insertion of Infusion Device into Left Brachial Vein, Percutaneous Approach (ICD-10-PCS; 2022-07-10)
DX: A41.89 Other specified sepsis (principal); I21.A1 Myocardial infarction type 2; I50.43 Acute on chronic combined systolic (congestive) and diastolic (congestive) heart failure; J12.82 Pneumonia due to coronavirus disease 2019; U07.1 COVID-19; J96.01 Acute respiratory failure with hypoxia; N17.0 Acute kidney failure with tubular necrosis; J15.9 Unspecified bacterial pneumonia; I26.99 Other pulmonary embolism without acute cor pulmonale; I48.19 Other persistent atrial fibrillation; L97.429 Non-pressure chronic ulcer of left heel and midfoot with unspecified severity; E44.0 Moderate protein-calorie malnutrition; E87.1 Hypo-osmolality and hyponatremia; I11.0 Hypertensive heart disease with heart failure; I25.10 Atherosclerotic heart disease of native coronary artery without angina pectoris; Z95.5 Presence of coronary angioplasty implant and graft; Z95.1 Presence of aortocoronary bypass graft; Z79.01 Long term (current) use of anticoagulants; I25.2 Old myocardial infarction; D64.9 Anemia, unspecified; Z79.4 Long term (current) use of insulin; Z79.82 Long term (current) use of aspirin; Z79.84 Long term (current) use of oral hypoglycemic drugs; Z79.899 Other long term (current) drug therapy; Z28.310 Unvaccinated for COVID-19; Z87.891 Personal history of nicotine dependence; E11.621 Type 2 diabetes mellitus with foot ulcer; L97.529 Non-pressure chronic ulcer of other part of left foot with unspecified severity; E86.1 Hypovolemia; E11.65 Type 2 diabetes mellitus with hyperglycemia; Z66 Do not resuscitate; Y95 Nosocomial condition
CPT/HCPCS: 36410; 36415; 36600; 71045-TC; 80053-TC; 82248-TC; 82550-TC; 82728-TC; 82962-TC; 83605-TC; 83615-TC; 83735-TC; 83880; 84100-TC; 84484-TC; 85025-TC; 85378-TC; 85730-TC; 86140-TC; 86480; 87081-TC; 94760-TC; 94799-TC; C9113; C9803; G0378; J0692; J0696; J1100; J1200; J1650; J1815; J1940; J2930; J3262; J7030; J7050; J7060